=== PATIENT | male | born 1955 | race Caucasian/White ===

== ENCOUNTER 2018-03-02 11:34 | Inpatient (IN) | payer MEDICAID ==
[2018-03-02 11:37] VITALS: BMI 31.1
[2018-03-02] MEDS ORDERED: Sodium Chloride 0.9% 1,000 ML IV ONE (11:46)
--- NOTE | 2018-03-02 12:02 | C.PDOC ---
History Of Present Illness 62 y/o male with history of DM and HTN brought to ED by EMS as a red phone call for "code heart". As per EMS patient was driving and developed worsening sharp upper abdominal pain 07/26. Patient reports he rested in the car and woke up with worsening pain, called 911. When EMS arrived patient was hypotensive and diaphoretic with distended abdomen, was given baby aspirin. Patient denies chest pain, son or any other complaints at this time. Time Seen by Provider: 03/02/18 11:44 Chief Complaint (Nursing): Chest Pain History Per: Patient, EMS History/Exam Limitations: no limitations Onset/Duration Of Symptoms: Hrs Current Symptoms Are (Timing): Still Present Quality: Sharp Associated Symptoms: Diaphoresis Past Medical History Reviewed: Historical Data, Nursing Documentation, Vital Signs Vital Signs: Last Vital Signs Temp 98.5 F 03/02/18 12:02 Pulse 81 03/02/18 13:30 Resp 25 H 03/02/18 13:30 BP 96/51 L 03/02/18 13:30 Pulse Ox 92 L 03/02/18 14:52 - Medical History PMH: HTN Surgical History: No Surg Hx Family History: States: No Known Family Hx - Social History Hx Alcohol Use: No Hx Substance Use: No - Immunization History Hx Tetanus Toxoid Vaccination: Yes Hx Influenza Vaccination: Yes Hx Pneumococcal Vaccination: Yes Review Of Systems Constitutional: Negative for: Fever, Chills Cardiovascular: Negative for: Chest Pain Respiratory: Negative for: Shortness of Breath Gastrointestinal: Positive for: Abdominal Pain. Negative for: Nausea, Vomiting , Diarrhea Skin: Negative for: Rash Physical Exam - Physical Exam Appears: Non-toxic, No Acute Distress Skin: Dry, Diaphoretic, Pale Head: Atraumatic, Normacephalic Eye(s): bilateral: PERRL, EOMI, Conjunctiva Pale Oral Mucosa: Moist Neck: Normal ROM, Supple Chest: Symmetrical Cardiovascular: Rhythm Regular Respiratory: Normal Breath Sounds, No Rales, No Rhonchi, No Wheezing Gastrointestinal/Abdominal: Soft, Tenderness (Diffuse), Distention, No Guarding , No Rebound Extremity: Normal ROM, Capillary Refill (<2 seconds) Neurological/Psych: Oriented x3, Normal Speech, Normal Cognition ED Course And Treatment - Laboratory Results Result Diagrams: 03/02/18 12:04 05/17/18 12:04 ECG: Interpreted By Me, Viewed By Me ECG Rhythm: Sinus Rhythm Rate From EC (BPM) O2 Sat by Pulse Oximetry: 92 (RA) Medical Decision Making Medical Decision Making: Progress: 1st ECG showed no significant ST elevations 2nd ECG minimal to no changes Dr Crawley at bedside evaluated patient and downgraded code heart secondary to normal ECG Patient responded to fluids, BP improved. CT abdomen showed SBO spoke with Dr. Gibbons, surgical residents at the bedside. Recommend admission to medicine. Disposition Discussed With DrMireille: Andrew Dimas Counseled Patient/Family Regarding: Studies Performed, Diagnosis - Disposition Disposition: HOSPITALIZED Disposition Time: 14:57 Condition: GUARDED Forms: [facility] ([place]an) - POA Present On Arrival: None - Clinical Impression Clinical Impression: SBO (small bowel obstruction) - Scribe Statement The provider has reviewed the documentation as recorded by the Scribe Vinny Calles All medical record entries made by the Scribe were at my direction and personally dictated by me. I have reviewed the chart and agree that the record accurately reflects my personal performance of the history, physical exam, medical decision making, and the department course for this patient. I have also personally directed, reviewed, and agree with the discharge instructions and disposition. Decision To Admit - Pt Status Changed To: Hospital Disposition Of: Observation - . Bed Request Type: Regular Patient Diagnosis: SBO (small bowel obstruction)
[2018-03-02 12:09] LABS: BASO % 0.4 % (0.0-2.0); EOS # 0.1 K/uL (0.0-0.7); EOS % 0.9 % (0.0-4.0); HEMOGLOBIN 15.3 g/dL (12.0-18.0); LYMPH # 1.4 K/uL (1.0-4.3); MEAN CELL VOLUME 86.6 fL (80.0-94.0); MEAN CORPUSCULAR HEMOGLOBIN 30.7 pg (27.0-31.0); MEAN CORPUSCULAR HGB CONC 35.4 g/dL (33.0-37.0); MEAN PLATELET VOLUME 9.1 fL (7.2-11.7); MONO # 0.5 K/uL (0.0-0.8); MONO % 6.9 % (0.0-10.0); NEUT # 5.8 K/uL (1.8-7.0); NEUT % 73.8 % (50.0-75.0); RBC 4.99 Mil/uL (4.40-5.90); RED CELL DISTRIBUTION WIDTH 13.6 % (11.5-14.5); WHITE BLOOD COUNT 7.8 K/uL (4.8-10.8)
[2018-03-02 12:31] LABS: B-TYPE NATRIURETIC PEPTIDE 84.7 pg/mL (0-900)
[2018-03-02 12:42] LABS: VENOUS BLOOD GAS BASE EXCESS -2.3 mmol/L (0.0-2.0); VENOUS BLOOD GAS PCO2 52 mmHg (40-60); VENOUS BLOOD GAS PO2 28 mm/Hg (30-55); VENOUS BLOOD PH 7.29 (7.32-7.43)
[2018-03-02 12:57] LABS: ALB/GLOB RATIO 1.2 (1.0-2.1); ALBUMIN 4.3 g/dL (3.5-5.0)
[2018-03-02] MEDS ORDERED: Dextrose 50% SYRINGE Inj (50 ml) IV STA ×2 (13:14→19:01)
[2018-03-02] MEDS ORDERED: (Novolin R) Insulin Human Regular 100 units/ml vial IV ONE (13:14)
--- NOTE | 2018-03-02 13:18 | RAD ---
Chest x-ray single frontal view History: Chest pain. Comparison: None available. Findings: No focal infiltrate or effusion. Heart size within normal limits. Impression: No focal infiltrate or effusion.
[2018-03-02 13:19] LABS: TROPONIN I 0.017 ng/mL (0.00-0.120)
--- NOTE | 2018-03-02 13:26 | CT ---
PROCEDURE: CT Abdomen and Pelvis without intravenous contrast HISTORY: abdominal pain/distention COMPARISON: Abdomen KUB 03/02/2018 12:23 p.m.. TECHNIQUE: Helical CT of the abdomen and pelvis was performed without oral or intravenous contrast as per referring physician request. Contrast dose: None Radiation dose: Total exam DLP = 1201.60 mGy-cm. This CT exam was performed using one or more of the following dose reduction techniques: Automated exposure control, adjustment of the mA and/or kV according to patient size, and/or use of iterative reconstruction technique. FINDINGS: LOWER THORAX: Normal sized heart with extensive coronary artery calcifications noted. No pleural or pericardial effusion. Small hiatal hernia encountered. LIVER: Unremarkable. No gross lesion or ductal dilatation. GALLBLADDER AND BILE DUCTS: Trach cholelithiasis identified with only a mildly distended gallbladder. PANCREAS: Unremarkable. No gross lesion or ductal dilatation. SPLEEN: Unremarkable. ADRENALS: Unremarkable. No mass. KIDNEYS AND URETERS: A 3.8 cm cyst in the mid to lower pole left kidney with a tiny lucency seen the upper pole right kidney too small to characterize, under 1 cm size. There is a 1.6 cm cyst identified at the lower pole left kidney as well. No hydronephrosis. No solid mass. VASCULATURE: A mildly atherosclerotic nonaneurysmal abdominal aorta is identified. BOWEL: There is moderate distention of the stomach with fluid. Small bowel is dilated diffusely with large-bowel essentially collapsed throughout. There is a fecalized segment of the ileum which appears to be the transition point for the small bowel obstruction. Consider potential bezoar in this location though a distal small bowel stricture is a possibility. Further clinical correlation is recommended. APPENDIX: Unremarkable. Normal appendix. PERITONEUM: Limited ascites identified in the inferior abdomen. There is no free intraperitoneal gas however. LYMPH NODES: Unremarkable. No enlarged lymph nodes. BLADDER: Unremarkable. REPRODUCTIVE: Unremarkable. BONES: No acute fracture. OTHER FINDINGS: None. IMPRESSION: High-grade distal small-bowel obstruction occurring at the terminal ileum with fecalized contents of the distal small bowel appreciated at the mid to distal ileum. Consider distal terminal ileal stricture or possible bezoar causing obstruction of distal small bowel. Limited inferior abdominal ascites. No free intraperitoneal gas. The colon appears collapsed. Lack of contrast agents limits interpretation. Other lesser findings as discussed above.
[2018-03-02] MEDS ORDERED: Dextrose 50% SYRINGE Inj (50 ml) ONE (13:28)
[2018-03-02] MEDS ORDERED: (Novolin R) Insulin Human Regular 100 units/ml vial ONE (13:28)
[2018-03-02] MEDS ORDERED: Calcium Gluconate 4.65 mEq/10 ml Inj ONE (13:30)
--- NOTE | 2018-03-02 13:45 | RAD ---
Abdomen two views History: Abdominal distention. Comparison: None available. Findings: Multiple dilated loops of small bowel seen throughout the visualized abdomen. Fecal retention in the right hemicolon. Impression: Multiple dilated loops of small bowel seen throughout the abdomen and pelvis concerning for partial bowel obstruction versus ileus. Please note a portion of right upper abdomen was not imaged.
[2018-03-02] MEDS ORDERED: Sodium Chloride 0.9% 1,000 ML ONE (14:45)
[2018-03-02] MEDS: Sodium Chloride 0.9% 1,000 ML IV SCH ×3 (14:56→22:13)
--- NOTE | 2018-03-02 15:14 | CP.PCM.HP ---
<Rowena Melo - Last Filed: 03/02/18 17:09> History of Present Illness - History of Present Illness History of Present Illness: Medicine Note for Hospitalist Service- Dr. Dimas CC: abdominal pain HPI: 62 year old male with PMHx of HTN (norvasc) and Uncontrolled T2DM (HbgA1C 9.1; on 70/30 and lantus) presents to the ED with severe abdominal pain that started this morning. Patient reported intense abdominal pain that started this morning. Last BM was loose at 0600, has not had flatus for 12+ hours. He was driving when he started having the pain. He parked and called 911 since the pain did not go away. Initially he was called as a code heart, serial EKGs and troponin were normal. Patient found to have SBO confirmed with CT abdomen and pelvis. Initially patient refused NGT but after vomiting bilious content, he agreed to the procedure. NGT placed with 650 cc of output. States similar pain 6 years ago where he was admitted for SBO, NGT placed and symptoms resolved w/o surgical intervention. Denies colonoscopy, denied any abdominal surgeries. Denied fever, chills, headache, chest pain, abdominal pain, n/v/d/c, or urinary symptoms. PMHx: HTN, Uncontrolled T2DM PSHx: Denied Meds: As noted in HPI All: Denied SHx: Admitted to smoking 1/2 ppd > 30+ years. Denied alcohol, or illicit drug use FHx: Unremarkable PMD: Dr. Savage Patel Present on Admission - Present on Admission Any Indicators Present on Admission: No Past Patient History - Past Social History Smoking Status: Light Smoker < 10 Cigarettes Daily - CARDIAC Hx Hypertension: Yes - ENDOCRINE/METABOLIC Hx Endocrine Disorders: Yes Hx Diabetes Mellitus Type 2: Yes - PSYCHIATRIC Hx Substance Use: No - SURGICAL HISTORY Hx Surgeries: Yes Other/Comment: upper back surgery Meds Allergies/Adverse Reactions: Allergies Allergy/AdvReac Type Severity Reaction Status Date / Time No Known Allergies Allergy Verified 03/02/18 11:37 Physical Exam - Constitutional Appears: No Acute Distress - Head Exam Head Exam: NORMAL INSPECTION, NORMOCEPHALIC - Eye Exam Eye Exam: EOMI, Normal appearance, PERRL Pupil Exam: NORMAL ACCOMODATION - ENT Exam ENT Exam: Mucous Membranes Moist - Respiratory Exam Respiratory Exam: Clear to Auscultation Bilateral, NORMAL BREATHING PATTERN - Cardiovascular Exam Cardiovascular Exam: REGULAR RHYTHM - GI/Abdominal Exam GI & Abdominal Exam: Distended, Firm, Normal Bowel Sounds, Soft, Tenderness. absent: Guarding, Hernia, Pulsatile Mass - Rectal Exam Rectal Exam: Deferred - Extremities Exam Extremities exam: Positive for: normal inspection, pedal pulses present. Negative for: pedal edema, tenderness - Neurological Exam Neurological exam: Alert, CN II-XII Intact, Oriented x3 - Psychiatric Exam Psychiatric exam: Normal Affect, Normal Mood - Skin Skin Exam: Dry, Intact, Normal Color, Warm Results - Vital Signs Recent Vital Signs: Last Vital Signs Temp 98.5 F 03/02/18 12:02 Pulse 81 03/02/18 13:30 Resp 25 H 03/02/18 13:30 BP 96/51 L 03/02/18 13:30 Pulse Ox 92 L 03/02/18 14:57 - Labs Result Diagrams: 03/02/18 12:04 03/02/18 12:04 Labs: Laboratory Results - last 24 hr 03/02/18 03/02/18 03/02/18 12:04 12:04 12:04 WBC 7.8 RBC 4.99 Hgb 15.3 Hct 43.2 MCV 86.6 MCH 30.7 MCHC 35.4 RDW 13.6 Plt Count 215 MPV 9.1 Neut % (Auto) 73.8 Lymph % (Auto) 18.0 L [place] % (Auto) 6.9 Eos % (Auto) 0.9 Baso % (Auto) 0.4 Neut # (Auto) 5.8 Lymph # (Auto) 1.4 [place] # (Auto) 0.5 Eos # (Auto) 0.1 Baso # (Auto) 0.0 pO2 VBG pH VBG pCO2 VBG HCO3 VBG Total CO2 VBG O2 Sat (Calc) VBG Base Excess VBG Potassium Glucose Lactate Sodium 132 Potassium 6.7 H* Chloride 92 L Carbon Dioxide 25 Anion Gap 22 H BUN 33 H Creatinine 2.1 H Est GFR ( Amer) 39 Est GFR (Non-Af Amer) 32 Random Glucose 268 H Calcium 10.0 Total Bilirubin 1.4 H AST 33 ALT 35 Alkaline Phosphatase 65 Troponin I 0.0170 NT-Pro-B Natriuret Pep 84.7 Total Protein 8.0 Albumin 4.3 Globulin 3.7 Albumin/Globulin Ratio 1.2 Triglycerides 120 Cholesterol 117 LDL Cholesterol Direct 70 HDL Cholesterol 29 L Venous Blood Potassium Blood Type O POSITIVE Antibody Screen Negative 03/02/18 12:35 WBC RBC Hgb Hct MCV MCH MCHC RDW Plt Count MPV Neut % (Auto) Lymph % (Auto) [place] % (Auto) Eos % (Auto) Baso % (Auto) Neut # (Auto) Lymph # (Auto) [place] # (Auto) Eos # (Auto) Baso # (Auto) pO2 28 L VBG pH 7.29 L VBG pCO2 52 VBG HCO3 21.7 VBG Total CO2 26.6 VBG O2 Sat (Calc) 51.2 VBG Base Excess -2.3 L VBG Potassium 5.7 H Glucose 253 H Lactate 2.3 H Sodium 129.0 L Potassium Chloride 97.0 L Carbon Dioxide Anion Gap BUN Creatinine Est GFR ( Amer) Est GFR (Non-Af Amer) Random Glucose Calcium Total Bilirubin AST ALT Alkaline Phosphatase Troponin I NT-Pro-B Natriuret Pep Total Protein Albumin Globulin Albumin/Globulin Ratio Triglycerides Cholesterol LDL Cholesterol Direct HDL Cholesterol Venous Blood Potassium 5.7 H Blood Type Antibody Screen Assessment & Plan - Assessment and Plan (Free Text) Assessment: 62 year old male with PMHx of HTN (norvasc) and Uncontrolled T2DM (HbgA1C 9.1; on 70/30 and lantus) presents to the ED with severe abdominal pain that started this morning found to have SBO. NGT placed with immediate relief and decompression with 650cc output bilious content. Previous SBO was 6 years ago relieved with NGT, no prior surgical intervention. Denied prior abdominal surgery or colonoscopy. Plan: SBO - Surgery consulted - Dr. Gibbons - help appreciated - Gastroenterology consulted - Dr. Garcia - help appreciated - History of SBO 6 years ago, NGT placed, no surgical intervention, no prior colonoscopy - Lactate 2.3 s/p 1 L, on NS @ 250cc/hr - will trend lactate Imaging: - Abdomen Xray: SBO - CT Abdomen & Pelvis: SBO vs illeus Meds: - NS @250 cc/hr - Zofran, Reglan PRN - NGT in place with 650 cc bilious output, on continuous suction Hyperkalemia - 6.7 on admission, s/p calcium gluconate, D50, Insulin - EKG: sinus tachycardia, no ST changes - F/U CBC, CMP, ABG, and EKG Hx T2DM, Uncontrolled - Accuchecks - HbgA1C- 9.1 - ISS- medium - Currently NPO Acute TERRIE - NS @250 cc/hr - Continue to monitor Hx HTN - Currently hypotensive, will hold on home dose of Norvasc 5 mg Prophylaxis - GI: protonix IV - DVT: SCDs, heparin Q12 DW Dr. Andrew Dimas, Rowena Melo DO, PGY-1 <Andrew Dimas - Last Filed: 03/02/18 19:00> Results - Vital Signs Recent Vital Signs: Last Vital Signs Temp 98.5 F 03/02/18 12:02 Pulse 94 H 03/02/18 17:17 Resp 18 03/02/18 17:17 BP 96/59 L 03/02/18 17:17 Pulse Ox 97 03/02/18 17:17 - Labs Result Diagrams: 03/02/18 18:17 03/02/18 18:17 Labs: Laboratory Results - last 24 hr 03/02/18 03/02/18 03/02/18 12:04 12:04 12:04 WBC 7.8 RBC 4.99 Hgb 15.3 Hct 43.2 MCV 86.6 MCH 30.7 MCHC 35.4 RDW 13.6 Plt Count 215 MPV 9.1 Neut % (Auto) 73.8 Lymph % (Auto) 18.0 L [place] % (Auto) 6.9 Eos % (Auto) 0.9 Baso % (Auto) 0.4 Neut # (Auto) 5.8 Lymph # (Auto) 1.4 Cass # (Auto) 0.5 Eos # (Auto) 0.1 Baso # (Auto) 0.0 pO2 VBG pH VBG pCO2 VBG HCO3 VBG Total CO2 VBG O2 Sat (Calc) VBG Base Excess VBG Potassium Glucose Lactate Sodium 132 Potassium 6.7 H* Chloride 92 L Carbon Dioxide 25 Anion Gap 22 H BUN 33 H Creatinine 2.1 H Est GFR ( Amer) 39 Est GFR (Non-Af Amer) 32 POC Glucose (mg/dL) Random Glucose 268 H Hemoglobin A1c Calcium 10.0 Total Bilirubin 1.4 H AST 33 ALT 35 Alkaline Phosphatase 65 Troponin I 0.0170 NT-Pro-B Natriuret Pep 84.7 Total Protein 8.0 Albumin 4.3 Globulin 3.7 Albumin/Globulin Ratio 1.2 Triglycerides 120 Cholesterol 117 LDL Cholesterol Direct 70 HDL Cholesterol 29 L Lipase 49 Venous Blood Potassium Influenza Typ A,B (EIA) Blood Type O POSITIVE Antibody Screen Negative 03/02/18 03/02/18 03/02/18 12:35 15:42 17:12 WBC RBC Hgb Hct MCV MCH MCHC RDW Plt Count MPV Neut % (Auto) Lymph % (Auto) [place] % (Auto) Eos % (Auto) Baso % (Auto) Neut # (Auto) Lymph # (Auto) Cass # (Auto) Eos # (Auto) Baso # (Auto) pO2 28 L VBG pH 7.29 L VBG pCO2 52 VBG HCO3 21.7 VBG Total CO2 26.6 VBG O2 Sat (Calc) 51.2 VBG Base Excess -2.3 L VBG Potassium 5.7 H Glucose 253 H Lactate 2.3 H Sodium 129.0 L Potassium Chloride 97.0 L Carbon Dioxide Anion Gap BUN Creatinine Est GFR ( Amer) Est GFR (Non-Af Amer) POC Glucose (mg/dL) 234 H Random Glucose Hemoglobin A1c 9.1 H Calcium Total Bilirubin AST ALT Alkaline Phosphatase Troponin I NT-Pro-B Natriuret Pep Total Protein Albumin Globulin Albumin/Globulin Ratio Triglycerides Cholesterol LDL Cholesterol Direct HDL Cholesterol Lipase Venous Blood Potassium 5.7 H Influenza Typ A,B (EIA) Blood Type Antibody Screen 03/02/18 03/02/18 03/02/18 18:17 18:17 Unknown WBC 8.1 RBC 4.96 Hgb 14.8 Hct 42.9 MCV 86.5 MCH 29.7 MCHC 34.4 RDW 13.8 Plt Count 208 MPV 8.6 Neut % (Auto) 75.5 H Lymph % (Auto) 16.6 L [place] % (Auto) 6.4 Eos % (Auto) 0.6 Baso % (Auto) 0.9 Neut # (Auto) 6.1 Lymph # (Auto) 1.3 Cass # (Auto) 0.5 Eos # (Auto) 0.1 Baso # (Auto) 0.1 pO2 VBG pH VBG pCO2 VBG HCO3 VBG Total CO2 VBG O2 Sat (Calc) VBG Base Excess VBG Potassium Glucose Lactate Sodium 134 Potassium 6.9 H* Chloride 96 L Carbon Dioxide 25 Anion Gap 20 BUN 37 H Creatinine 2.1 H Est GFR ( Amer) 39 Est GFR (Non-Af Amer) 32 POC Glucose (mg/dL) Random Glucose 242 H Hemoglobin A1c Calcium 9.6 Total Bilirubin 1.3 AST 27 ALT 38 Alkaline Phosphatase 57 Troponin I NT-Pro-B Natriuret Pep Total Protein 7.3 Albumin 4.0 Globulin 3.3 Albumin/Globulin Ratio 1.2 Triglycerides Cholesterol LDL Cholesterol Direct HDL Cholesterol Lipase Venous Blood Potassium Influenza Typ A,B (EIA) Negative for flu a/b Blood Type Antibody Screen Attending/Attestation - Attestation I have personally seen and examined this patient.: Yes I have fully participated in the care of the patient.: Yes I have reviewed all pertinent clinical information: Yes Notes (Text): 03/02/18 19:00 Medical attending: Patient was seen and examined by me. Agree with the above note by the medical delivery driver. As reported above previously, the patient was driving when he became very weak, appeared to have abdominal pain, and had to tap puller the side of the road - when he was found by EMS they were very concerned that he was having an AR EKGs were done and these did not show an ST elevated AR or depressions. His first troponin is negative as well. When he was found to have was a small bowel obstruction. Initially he was very reluctant to have NG tube placed in however eventually he did allow the NG tube to be placed in. For alma delia will have to recheck his lab work just make sure his lactic acid level does not increase, and ABG as well. Also he did have a high potassium level. The emergency room gave IV insulin as well as calcium gluconate. I did not see any EKG changes when I looked at EKGs. Nevertheless will we again checked the lab work alma delia Thank you very much, Andrew Dimas
[2018-03-02] MEDS ORDERED: Sodium Chloride 0.9% 1,000 ML IV SCH (15:15)
[2018-03-02] MEDS ORDERED: HYDROmorphone 0.5 mg/0.5 ml ISec IVP PRN ×2 (15:16→15:21)
--- NOTE | 2018-03-02 15:18 | CP.PCM.CON ---
History of Present Illness - History of Present Illness History of Present Illness: General Surgery- Dr. Gibbons Reason for Consult: SBO 62M pmhx significant for SBO, HTN, Diabetes presents to [facility] ER w/ Crampy generalized abdominal pain that started at 6am today with associated diaphroesis and subjective fever. Last BM was loose at 0600, has not had flatus for 12+ hours. States similar pain 6 years ago where he was admitted for SBO NGT placed and symptoms resolved w/o surgical intervention. Patient has a history of needing to take stool softener as a kid. Denies colonoscopy or bright red blood per rectum. No previous abdominal surgeries. Denies recent sick contacts or foreign travel. Currently denies: Vomiting, chest pain, shortness of breath, changes in urinary habits, numbness/tingling in extremities PMH: stated above PSH: Denies ALL: NKDA SocialHx: smokes 1/2 ppd > 30+ years. Drives a limosuine. Denies ETOH, recreational drug use FamHx: non-contributory Review of Systems - Review of Systems All systems: reviewed and no additional remarkable complaints except - Constitutional Constitutional: As Per HPI Past Patient History - Past Social History Smoking Status: Light Smoker < 10 Cigarettes Daily - CARDIAC Hx Hypertension: Yes - ENDOCRINE/METABOLIC Hx Endocrine Disorders: Yes Hx Diabetes Mellitus Type 2: Yes - PSYCHIATRIC Hx Substance Use: No - SURGICAL HISTORY Hx Surgeries: Yes Other/Comment: upper back surgery Meds Allergies/Adverse Reactions: Allergies Allergy/AdvReac Type Severity Reaction Status Date / Time No Known Allergies Allergy Verified 03/02/18 11:37 - Medications Medications: Current Medications Hydromorphone HCl (Dilaudid) 0.5 mg IVP Q4H PRN PRN Reason: Pain, moderate (4-7) Sodium Chloride (Sodium Chloride 0.9%) 1,000 mls @ 250 mls/hr IV .Q4H TRISTA Last Admin: 03/02/18 14:56 Dose: 250 mls/hr Sodium Chloride (Sodium Chloride 0.9%) 1,000 mls @ 175 mls/hr IV .Q5H43M TRISTA Ondansetron HCl (Zofran Inj) 4 mg IVP Q4 PRN PRN Reason: Nausea/Vomiting Physical Exam - Constitutional Appears: Non-toxic, No Acute Distress - Eye Exam Eye Exam: EOMI. absent: Scleral icterus - ENT Exam ENT Exam: Mucous Membranes Moist - Respiratory Exam Respiratory Exam: NORMAL BREATHING PATTERN. absent: Accessory Muscle Use, Respiratory Distress - Cardiovascular Exam Cardiovascular Exam: +S1, +S2. absent: Bradycardia, Tachycardia - GI/Abdominal Exam GI & Abdominal Exam: Distended, Guarding (voluntary guarding), Soft, Tenderness (tender to palpation localized aliyah-umblical). absent: Firm, Rebound, Rigid - Extremities Exam Extremities exam: Positive for: normal inspection. Negative for: calf tenderness - Neurological Exam Neurological exam: Alert, Oriented x3 - Psychiatric Exam Psychiatric exam: Normal Affect - Skin Skin Exam: Intact, Warm Results - Vital Signs Recent Vital Signs: Last Vital Signs Temp 98.5 F 03/02/18 12:02 Pulse 81 03/02/18 13:30 Resp 25 H 03/02/18 13:30 BP 96/51 L 03/02/18 13:30 Pulse Ox 92 L 03/02/18 14:57 - Labs Result Diagrams: 03/02/18 12:04 03/02/18 12:04 Labs: Laboratory Results - last 24 hr 03/02/18 03/02/18 03/02/18 12:04 12:04 12:04 WBC 7.8 RBC 4.99 Hgb 15.3 Hct 43.2 MCV 86.6 MCH 30.7 MCHC 35.4 RDW 13.6 Plt Count 215 MPV 9.1 Neut % (Auto) 73.8 Lymph % (Auto) 18.0 L [place] % (Auto) 6.9 Eos % (Auto) 0.9 Baso % (Auto) 0.4 Neut # (Auto) 5.8 Lymph # (Auto) 1.4 [place] # (Auto) 0.5 Eos # (Auto) 0.1 Baso # (Auto) 0.0 pO2 VBG pH VBG pCO2 VBG HCO3 VBG Total CO2 VBG O2 Sat (Calc) VBG Base Excess VBG Potassium Glucose Lactate Sodium 132 Potassium 6.7 H* Chloride 92 L Carbon Dioxide 25 Anion Gap 22 H BUN 33 H Creatinine 2.1 H Est GFR ( Amer) 39 Est GFR (Non-Af Amer) 32 Random Glucose 268 H Calcium 10.0 Total Bilirubin 1.4 H AST 33 ALT 35 Alkaline Phosphatase 65 Troponin I 0.0170 NT-Pro-B Natriuret Pep 84.7 Total Protein 8.0 Albumin 4.3 Globulin 3.7 Albumin/Globulin Ratio 1.2 Triglycerides 120 Cholesterol 117 LDL Cholesterol Direct 70 HDL Cholesterol 29 L Venous Blood Potassium Blood Type O POSITIVE Antibody Screen Negative 03/02/18 12:35 WBC RBC Hgb Hct MCV MCH MCHC RDW Plt Count MPV Neut % (Auto) Lymph % (Auto) [place] % (Auto) Eos % (Auto) Baso % (Auto) Neut # (Auto) Lymph # (Auto) [place] # (Auto) Eos # (Auto) Baso # (Auto) pO2 28 L VBG pH 7.29 L VBG pCO2 52 VBG HCO3 21.7 VBG Total CO2 26.6 VBG O2 Sat (Calc) 51.2 VBG Base Excess -2.3 L VBG Potassium 5.7 H Glucose 253 H Lactate 2.3 H Sodium 129.0 L Potassium Chloride 97.0 L Carbon Dioxide Anion Gap BUN Creatinine Est GFR ( Amer) Est GFR (Non-Af Amer) Random Glucose Calcium Total Bilirubin AST ALT Alkaline Phosphatase Troponin I NT-Pro-B Natriuret Pep Total Protein Albumin Globulin Albumin/Globulin Ratio Triglycerides Cholesterol LDL Cholesterol Direct HDL Cholesterol Venous Blood Potassium 5.7 H Blood Type Antibody Screen Assessment & Plan - Assessment and Plan (Free Text) Assessment: 62M w/ abdominal pain, SBO Plan: - NGT - NPO - IVF- on NS - serial abd exams - pain control and anti-emetic PRN - AM Labs - monitor bowel function - I/O - d/w Dr. Gibbons surgical attending [facility] PGY1
[2018-03-02] MEDS ORDERED: (Novolin R) Insulin Human Regular 100 units/ml vial SC SCH ×2 (16:30→18:03)
--- NOTE | 2018-03-02 17:06 | RAD ---
HISTORY: NGT placement COMPARISON: 03/02/2018. Time of the most recent examination: 12:14. FINDINGS: LUNGS: No active pulmonary disease. PLEURA: No significant pleural effusion identified, no pneumothorax apparent. CARDIOVASCULAR: Normal. OSSEOUS STRUCTURES: No significant abnormalities. VISUALIZED UPPER ABDOMEN: Normal. OTHER FINDINGS: Nasogastric tube courses through the esophagus into the stomach in good position. IMPRESSION: No active pulmonary disease. Satisfactory position of recently placed nasogastric tube.
[2018-03-02] MEDS ORDERED: Morphine 4 MG/ML VIAL ONE (17:10)
[2018-03-02 18:20] LABS: BASO % 0.9 % (0.0-2.0); EOS % 0.6 % (0.0-4.0); HEMOGLOBIN 14.8 g/dL (12.0-18.0); LYMPH # 1.3 K/uL (1.0-4.3); LYMPH % 16.6 % (20.0-40.0); MEAN CELL VOLUME 86.5 fL (80.0-94.0); MEAN CORPUSCULAR HEMOGLOBIN 29.7 pg (27.0-31.0); MEAN CORPUSCULAR HGB CONC 34.4 g/dL (33.0-37.0); MEAN PLATELET VOLUME 8.6 fL (7.2-11.7); MONO # 0.5 K/uL (0.0-0.8); MONO % 6.4 % (0.0-10.0); NEUT # 6.1 K/uL (1.8-7.0); NEUT % 75.5 % (50.0-75.0); RBC 4.96 Mil/uL (4.40-5.90); RED CELL DISTRIBUTION WIDTH 13.8 % (11.5-14.5); WHITE BLOOD COUNT 8.1 K/uL (4.8-10.8)
[2018-03-02 18:21] LABS: BASO # 0.1 K/uL (0.0-0.2); EOS # 0.1 K/uL (0.0-0.7)
[2018-03-02 18:47] LABS: ALB/GLOB RATIO 1.2 (1.0-2.1); CALCIUM 9.6 mg/dl (8.6-10.4)
[2018-03-02] MEDS ORDERED: (Novolin R) Insulin Human Regular 100 units/ml vial SC ONE (19:01)
[2018-03-02] MEDS ORDERED: Sodium Bicarbonate (8.4%) 50 Meq Syringe IVP ONE (19:02)
[2018-03-02] MEDS ORDERED: Calcium Gluconate 4.65 mEq/10 ml Inj IVP ONE (19:03)
[2018-03-02] MEDS ORDERED: Albuterol 0.083% Inhal Sol (2.5 mg/3 mL) UD INH STA (19:37)
[2018-03-02 19:58] LABS: ABG ALLEN TEST PO; ARTERIAL BLOOD GAS HCO3 26.2 mmol/L (21-28); ARTERIAL BLOOD GAS HEMOGLOBIN 14.5 g/dL (11.7-17.4); ARTERIAL BLOOD GAS O2 SAT 92.3 % (95-98); ARTERIAL BLOOD GAS PCO2 44 mm/Hg (35-45); ARTERIAL BLOOD GAS PO2 54 mm/Hg (80-100); ARTERIAL BLOOD GAS TCO2 28.7 mmol/L (22-28)
[2018-03-02] MEDS: (Novolin R) Insulin Human Regular 100 units/ml vial SC SCH (21:46)
[2018-03-02 22:13] LABS: CALCIUM 9.7 mg/dl (8.6-10.4)
[2018-03-03] MEDS: Sodium Chloride 0.9% 1,000 ML IV SCH ×5 (00:23→18:58)
[2018-03-03 02:26] VITALS: RESP 20
[2018-03-03] MEDS: (Novolin R) Insulin Human Regular 100 units/ml vial SC SCH ×4 (07:35→22:28)
--- NOTE | 2018-03-03 07:37 | CP.PCM.PN ---
Subjective - Date & Time of Evaluation Date of Evaluation: 03/03/18 Time of Evaluation: 06:30 - Subjective Subjective: General Surgery- Dr. Gibbons Patient seen and examined at bedside this AM. no acute events overnight. 200cc of bilious fluid. Abdominal pain better than yesterday. Less distended. No flatus or BM overnight. Denies Fevers, chills, chest pain, shortness of breath, vomiting, diarrhea Objective - Vital Signs/Intake and Output Vital Signs (last 24 hours): Temp Pulse Resp BP Pulse Ox 99.1 F 108 H 20 116/66 95 03/02/18 23:45 03/03/18 05:06 03/02/18 23:45 03/02/18 23:45 03/02/18 23:45 Intake and Output: 03/03/18 03/03/18 06:59 18:59 Intake Total 2375 Output Total 1000 Balance 1375 - Medications Medications: Current Medications Acetaminophen (Tylenol 325mg Tab) 650 mg PO Q6 PRN PRN Reason: Fever >100.4 F Heparin Sodium (Porcine) (Heparin) 5,000 units SC Q12 [facility] Last Admin: 03/02/18 21:35 Dose: 5,000 units Sodium Chloride (Sodium Chloride 0.9%) 1,000 mls @ 250 mls/hr IV .Q4H [facility] Last Admin: 03/03/18 05:02 Dose: 250 mls/hr Insulin Human Regular (Novolin R) 0 unit SC ACHS [facility] PRN Reason: Protocol Last Admin: 03/02/18 21:46 Dose: Not Given Metoclopramide HCl (Reglan) 10 mg IVP Q6 [facility] Stop: 03/04/18 12:01 Last Admin: 03/03/18 06:10 Dose: 10 mg Morphine Sulfate (Morphine) 1 mg IVP Q4 PRN PRN Reason: Pain, severe (8-10) Last Admin: 03/02/18 17:14 Dose: 1 mg Ondansetron HCl (Zofran Inj) 4 mg IVP Q4 PRN PRN Reason: Nausea/Vomiting Last Admin: 03/02/18 17:14 Dose: 4 mg Pantoprazole Sodium (Protonix Inj) 40 mg IVP DAILY [facility] - Labs Labs: 03/02/18 18:17 03/02/18 21:52 - Constitutional Appears: Non-toxic, No Acute Distress - Head Exam Head Exam: absent: ATRAUMATIC - Eye Exam Eye Exam: EOMI, Scleral icterus - ENT Exam ENT Exam: Mucous Membranes Moist - Respiratory Exam Respiratory Exam: NORMAL BREATHING PATTERN. absent: Accessory Muscle Use, Respiratory Distress - Cardiovascular Exam Cardiovascular Exam: +S1, +S2. absent: Bradycardia, Tachycardia - GI/Abdominal Exam GI & Abdominal Exam: Distended (less distended than yesterday), Soft, Tenderness (tender in lower abdomen to deep palpation). absent: Firm, Guarding , Rigid - Neurological Exam Neurological Exam: Alert, Awake, Oriented x3 - Skin Skin Exam: Intact, Warm Assessment and Plan - Assessment and Plan (Free Text) Assessment: 62M w/ SBO Plan: - NPO - IVF - NGT to suction- gentle flushes q4h - monitor bowel function - monitor I/O - pt abd improving - d/w Dr. Gibbons Surgical attending PGY1
--- NOTE | 2018-03-03 07:51 | CP.PCM.CON ---
<Rebecca Navarro - Last Filed: 03/03/18 11:01> History of Present Illness - History of Present Illness History of Present Illness: Gastroenterology Fellow/PGY5 Consult Note 62 year old male with PMH of SBO six years ago ([facility]) , uncontrolled T2DM, HTN, and Obesity presenting with abdominal pain. Patient notes normal activities of daily living leading up to sudden onset of diffuse sharp, pressure-like, progressive abdominal pain without radiation to chest or back at 6AM yesterday, pain scale 10/10. He notes having a formed stool at 4AM prior to abdominal pain onset. The pain became unbearable between 10-11AM leading to ER presentation. Associated diaphoresis, nausea, and one bilious vomitus episode in ER. Subsequent 650cc NGT output and overnight additional 300cc NGT output. This morning, continues to have diffuse abdominal pain, pain scale 6-7/10. Denies flatus or bowel movement since 6AM yesterday morning. He notes eating soup in the day on Tuesday and having junk food of pizza, fried chicken, and rice for dinner. He notes similar presentation to diagnosis of SBO six years ago which resolved conservatively with NGT decompression. Denies hematemesis, heartburn, bloating, diarrhea, constipation, melena, hematochezia, unintentional weight loss, skin lesions, oral aphthous ulcers, eye pain/redness , kidney stones, back/hip pain, leg swelling, yellowing of skin/eyes, or confusion. No prior EGD or colonoscopy. Family History- denies SBO, stomach cancer, colon cancer Social History- 1/2ppd>30years, denies alcohol or illicit drug use Surgical History- denies Review of Systems - Review of Systems Review of Systems: 12-point review of system negative except for as above Past Patient History - Past Social History Smoking Status: Light Smoker < 10 Cigarettes Daily - CARDIAC Hx Hypertension: Yes - ENDOCRINE/METABOLIC Hx Endocrine Disorders: Yes Hx Diabetes Mellitus Type 2: Yes - PSYCHIATRIC Hx Substance Use: No - SURGICAL HISTORY Hx Surgeries: Yes Other/Comment: upper back surgery Meds Allergies/Adverse Reactions: Allergies Allergy/AdvReac Type Severity Reaction Status Date / Time No Known Allergies Allergy Verified 03/02/18 11:37 - Medications Medications: Current Medications Acetaminophen (Tylenol 325mg Tab) 650 mg PO Q6 PRN PRN Reason: Fever >100.4 F Heparin Sodium (Porcine) (Heparin) 5,000 units SC Q12 [facility] Last Admin: 03/02/18 21:35 Dose: 5,000 units Sodium Chloride (Sodium Chloride 0.9%) 1,000 mls @ 250 mls/hr IV .Q4H [facility] Last Admin: 03/03/18 05:02 Dose: 250 mls/hr Insulin Human Regular (Novolin R) 0 unit SC ACHS [facility] PRN Reason: Protocol Last Admin: 03/02/18 21:46 Dose: Not Given Metoclopramide HCl (Reglan) 10 mg IVP Q6 [facility] Stop: 03/04/18 12:01 Last Admin: 03/03/18 06:10 Dose: 10 mg Morphine Sulfate (Morphine) 1 mg IVP Q4 PRN PRN Reason: Pain, severe (8-10) Last Admin: 03/02/18 17:14 Dose: 1 mg Ondansetron HCl (Zofran Inj) 4 mg IVP Q4 PRN PRN Reason: Nausea/Vomiting Last Admin: 03/02/18 17:14 Dose: 4 mg Pantoprazole Sodium (Protonix Inj) 40 mg IVP DAILY [facility] Physical Exam - Constitutional Appears: Non-toxic, No Acute Distress - Head Exam Head Exam: ATRAUMATIC, NORMOCEPHALIC - Eye Exam Eye Exam: EOMI, PERRL. absent: Scleral icterus Pupil Exam: PERRL. absent: Miosis, Mydriatic - ENT Exam ENT Exam: Mucous Membranes Moist, Normal Oropharynx Additional comments: right nare NGT in place, 300cc of dark bilious output in canister - Neck Exam Neck exam: Positive for: Normal Inspection - Respiratory Exam Respiratory Exam: Clear to Auscultation Bilateral. absent: Rales, Rhonchi, Wheezes - Cardiovascular Exam Cardiovascular Exam: RRR, +S1, +S2. absent: Gallop, Rubs - GI/Abdominal Exam GI & Abdominal Exam: Diminished Bowel Sounds, Distended, Hypoactive Bowel Sounds , Soft, Tenderness. absent: Firm, Guarding, Organomegaly, Rebound, Rigid Additional comments: diffuse tenderness to palpation, hypoactive bowel sounds - Extremities Exam Extremities exam: Positive for: normal inspection. Negative for: pedal edema - Neurological Exam Neurological exam: Alert, Oriented x3 - Psychiatric Exam Psychiatric exam: Normal Affect, Normal Mood - Skin Skin Exam: Dry, Intact, Normal Color, Warm Results - Vital Signs Recent Vital Signs: Last Vital Signs Temp 99.1 F 03/02/18 23:45 Pulse 108 H 03/03/18 05:06 Resp 20 03/02/18 23:45 BP 116/66 03/02/18 23:45 Pulse Ox 95 03/02/18 23:45 - Labs Result Diagrams: 03/03/18 08:33 03/03/18 08:33 Labs: Laboratory Results - last 24 hr 03/02/18 03/02/18 03/02/18 12:04 12:04 12:04 WBC 7.8 RBC 4.99 Hgb 15.3 Hct 43.2 MCV 86.6 MCH 30.7 MCHC 35.4 RDW 13.6 Plt Count 215 MPV 9.1 Neut % (Auto) 73.8 Lymph % (Auto) 18.0 L Clark % (Auto) 6.9 Eos % (Auto) 0.9 Baso % (Auto) 0.4 Neut # (Auto) 5.8 Lymph # (Auto) 1.4 Clark # (Auto) 0.5 Eos # (Auto) 0.1 Baso # (Auto) 0.0 Puncture Site pCO2 pO2 HCO3 ABG pH ABG Total CO2 ABG O2 Saturation ABG Base Excess ABG Hemoglobin ABG Carboxyhemoglobin POC ABG HHb (Measured) ABG Methemoglobin [place] Test VBG pH VBG pCO2 VBG HCO3 VBG Total CO2 VBG O2 Sat (Calc) VBG Base Excess VBG Potassium A-a O2 Difference Respiratory Index Hgb O2 Saturation Glucose Lactate FiO2 Sodium 132 Potassium 6.7 H* Chloride 92 L Carbon Dioxide 25 Anion Gap 22 H BUN 33 H Creatinine 2.1 H Est GFR ( Amer) 39 Est GFR (Non-Af Amer) 32 POC Glucose (mg/dL) Random Glucose 268 H Hemoglobin A1c Calcium 10.0 Total Bilirubin 1.4 H AST 33 ALT 35 Alkaline Phosphatase 65 Troponin I 0.0170 NT-Pro-B Natriuret Pep 84.7 Total Protein 8.0 Albumin 4.3 Globulin 3.7 Albumin/Globulin Ratio 1.2 Triglycerides 120 Cholesterol 117 LDL Cholesterol Direct 70 HDL Cholesterol 29 L Lipase 49 Venous Blood Potassium Influenza Typ A,B (EIA) Blood Type O POSITIVE Antibody Screen Negative 03/02/18 03/02/18 03/02/18 12:35 15:42 17:12 WBC RBC Hgb Hct MCV MCH MCHC RDW Plt Count MPV Neut % (Auto) Lymph % (Auto) Clark % (Auto) Eos % (Auto) Baso % (Auto) Neut # (Auto) Lymph # (Auto) Clark # (Auto) Eos # (Auto) Baso # (Auto) Puncture Site pCO2 pO2 28 L HCO3 ABG pH ABG Total CO2 ABG O2 Saturation ABG Base Excess ABG Hemoglobin ABG Carboxyhemoglobin POC ABG HHb (Measured) ABG Methemoglobin [place] Test VBG pH 7.29 L VBG pCO2 52 VBG HCO3 21.7 VBG Total CO2 26.6 VBG O2 Sat (Calc) 51.2 VBG Base Excess -2.3 L VBG Potassium 5.7 H A-a O2 Difference Respiratory Index Hgb O2 Saturation Glucose 253 H Lactate 2.3 H FiO2 Sodium 129.0 L Potassium Chloride 97.0 L Carbon Dioxide Anion Gap BUN Creatinine Est GFR ( Amer) Est GFR (Non-Af Amer) POC Glucose (mg/dL) 234 H Random Glucose Hemoglobin A1c 9.1 H Calcium Total Bilirubin AST ALT Alkaline Phosphatase Troponin I NT-Pro-B Natriuret Pep Total Protein Albumin Globulin Albumin/Globulin Ratio Triglycerides Cholesterol LDL Cholesterol Direct HDL Cholesterol Lipase Venous Blood Potassium 5.7 H Influenza Typ A,B (EIA) Blood Type Antibody Screen 03/02/18 03/02/18 03/02/18 18:17 18:17 19:55 WBC 8.1 RBC 4.96 Hgb 14.8 Hct 42.9 MCV 86.5 MCH 29.7 MCHC 34.4 RDW 13.8 Plt Count 208 MPV 8.6 Neut % (Auto) 75.5 H Lymph % (Auto) 16.6 L Clark % (Auto) 6.4 Eos % (Auto) 0.6 Baso % (Auto) 0.9 Neut # (Auto) 6.1 Lymph # (Auto) 1.3 Clark # (Auto) 0.5 Eos # (Auto) 0.1 Baso # (Auto) 0.1 Puncture Site Lr pCO2 44 pO2 54 L HCO3 26.2 ABG pH 7.40 ABG Total CO2 28.7 H ABG O2 Saturation 92.3 L ABG Base Excess 2.0 ABG Hemoglobin 14.5 ABG Carboxyhemoglobin 2.8 H POC ABG HHb (Measured) 7.4 H ABG Methemoglobin 1.2 [place] Test Po VBG pH VBG pCO2 VBG HCO3 VBG Total CO2 VBG O2 Sat (Calc) VBG Base Excess VBG Potassium A-a O2 Difference 41.0 Respiratory Index 0.8 Hgb O2 Saturation 88.6 L Glucose Lactate FiO2 21.0 Sodium 134 Potassium 6.9 H* Chloride 96 L Carbon Dioxide 25 Anion Gap 20 BUN 37 H Creatinine 2.1 H Est GFR ( Amer) 39 Est GFR (Non-Af Amer) 32 POC Glucose (mg/dL) Random Glucose 242 H Hemoglobin A1c Calcium 9.6 Total Bilirubin 1.3 AST 27 ALT 38 Alkaline Phosphatase 57 Troponin I NT-Pro-B Natriuret Pep Total Protein 7.3 Albumin 4.0 Globulin 3.3 Albumin/Globulin Ratio 1.2 Triglycerides Cholesterol LDL Cholesterol Direct HDL Cholesterol Lipase Venous Blood Potassium Influenza Typ A,B (EIA) Blood Type Antibody Screen 03/02/18 03/02/18 03/02/18 21:40 21:52 Unknown WBC RBC Hgb Hct MCV MCH MCHC RDW Plt Count MPV Neut % (Auto) Lymph % (Auto) Clark % (Auto) Eos % (Auto) Baso % (Auto) Neut # (Auto) Lymph # (Auto) Clark # (Auto) Eos # (Auto) Baso # (Auto) Puncture Site pCO2 pO2 HCO3 ABG pH ABG Total CO2 ABG O2 Saturation ABG Base Excess ABG Hemoglobin ABG Carboxyhemoglobin POC ABG HHb (Measured) ABG Methemoglobin [place] Test VBG pH VBG pCO2 VBG HCO3 VBG Total CO2 VBG O2 Sat (Calc) VBG Base Excess VBG Potassium A-a O2 Difference Respiratory Index Hgb O2 Saturation Glucose Lactate FiO2 Sodium 137 Potassium 5.2 Chloride 95 L Carbon Dioxide 29 Anion Gap 18 BUN 40 H Creatinine 1.9 H Est GFR ( Amer) 44 Est GFR (Non-Af Amer) 36 POC Glucose (mg/dL) 257 H Random Glucose 262 H Hemoglobin A1c Calcium 9.7 Total Bilirubin AST ALT Alkaline Phosphatase Troponin I NT-Pro-B Natriuret Pep Total Protein Albumin Globulin Albumin/Globulin Ratio Triglycerides Cholesterol LDL Cholesterol Direct HDL Cholesterol Lipase Venous Blood Potassium Influenza Typ A,B (EIA) Negative for flu a/b Blood Type Antibody Screen 03/03/18 06:48 WBC RBC Hgb Hct MCV MCH MCHC RDW Plt Count MPV Neut % (Auto) Lymph % (Auto) Clark % (Auto) Eos % (Auto) Baso % (Auto) Neut # (Auto) Lymph # (Auto) Clark # (Auto) Eos # (Auto) Baso # (Auto) Puncture Site pCO2 pO2 HCO3 ABG pH ABG Total CO2 ABG O2 Saturation ABG Base Excess ABG Hemoglobin ABG Carboxyhemoglobin POC ABG HHb (Measured) ABG Methemoglobin [place] Test VBG pH VBG pCO2 VBG HCO3 VBG Total CO2 VBG O2 Sat (Calc) VBG Base Excess VBG Potassium A-a O2 Difference Respiratory Index Hgb O2 Saturation Glucose Lactate FiO2 Sodium Potassium Chloride Carbon Dioxide Anion Gap BUN Creatinine Est GFR ( Amer) Est GFR (Non-Af Amer) POC Glucose (mg/dL) 154 H Random Glucose Hemoglobin A1c Calcium Total Bilirubin AST ALT Alkaline Phosphatase Troponin I NT-Pro-B Natriuret Pep Total Protein Albumin Globulin Albumin/Globulin Ratio Triglycerides Cholesterol LDL Cholesterol Direct HDL Cholesterol Lipase Venous Blood Potassium Influenza Typ A,B (EIA) Blood Type Antibody Screen Assessment & Plan - Assessment and Plan (Free Text) Assessment: 62 year old male with PMH of SBO six years ago (treated at [facility] in [facility]), uncontrolled T2DM, HTN, and Obesity presenting with abdominal pain. Active treatment of SBO with transition point at ileum noted on CT A/P without contrast. Similar presentation with SBO six years ago which resolved conservatively with NGT decompression. No prior EGD or colonoscopy. Plan: -DDx-stricture, bezoar -ordered repeat abdominal flat plate -no BM/flatus on morning evaluation -surgery following- appreciate recommendations -continue NGT decompression -IVFs, pain control if no improvement in symptoms, may require surgical intervention -will benefit from luminal exam in outpatient setting after obstruction resolves - <Orlando Martinez - Last Filed: 03/03/18 13:08> Meds - Medications Medications: Current Medications Acetaminophen (Tylenol 325mg Tab) 650 mg PO Q6 PRN PRN Reason: Fever >100.4 F Heparin Sodium (Porcine) (Heparin) 5,000 units SC Q12 [facility] Last Admin: 03/03/18 10:30 Dose: 5,000 units Sodium Chloride (Sodium Chloride 0.9%) 1,000 mls @ 150 mls/hr IV .Q6H40M [facility] Insulin Human Regular (Novolin R) 0 unit SC ACHS [facility] PRN Reason: Protocol Last Admin: 03/03/18 07:35 Dose: Not Given Metoclopramide HCl (Reglan) 10 mg IVP Q6 [facility] Stop: 03/04/18 12:01 Last Admin: 03/03/18 06:10 Dose: 10 mg Morphine Sulfate (Morphine) 1 mg IVP Q4 PRN PRN Reason: Pain, severe (8-10) Last Admin: 03/02/18 17:14 Dose: 1 mg Ondansetron HCl (Zofran Inj) 4 mg IVP Q4 PRN PRN Reason: Nausea/Vomiting Last Admin: 03/02/18 17:14 Dose: 4 mg Pantoprazole Sodium (Protonix Inj) 40 mg IVP DAILY [facility] Last Admin: 03/03/18 10:30 Dose: 40 mg Results - Vital Signs Recent Vital Signs: Last Vital Signs Temp 98.2 F 03/03/18 07:00 Pulse 99 H 03/03/18 07:43 Resp 20 03/03/18 07:00 BP 115/75 03/03/18 07:00 Pulse Ox 94 L 03/03/18 07:00 - Labs Result Diagrams: 03/03/18 08:33 03/03/18 08:33 Labs: Laboratory Results - last 24 hr 03/02/18 03/02/18 03/02/18 12:04 15:42 17:12 WBC RBC Hgb Hct MCV MCH MCHC RDW Plt Count MPV Neut % (Auto) Lymph % (Auto) Clark % (Auto) Eos % (Auto) Baso % (Auto) Neut # (Auto) Lymph # (Auto) Clark # (Auto) Eos # (Auto) Baso # (Auto) Puncture Site pCO2 pO2 HCO3 ABG pH ABG Total CO2 ABG O2 Saturation ABG Base Excess ABG Hemoglobin ABG Carboxyhemoglobin POC ABG HHb (Measured) ABG Methemoglobin [place] Test A-a O2 Difference Respiratory Index Hgb O2 Saturation FiO2 Sodium 132 Potassium 6.7 H* Chloride 92 L Carbon Dioxide 25 Anion Gap 22 H BUN 33 H Creatinine 2.1 H Est GFR ( Amer) 39 Est GFR (Non-Af Amer) 32 POC Glucose (mg/dL) 234 H Random Glucose 268 H Hemoglobin A1c 9.1 H Lactic Acid Calcium 10.0 Total Bilirubin 1.4 H AST 33 ALT 35 Alkaline Phosphatase 65 Troponin I 0.0170 NT-Pro-B Natriuret Pep 84.7 Total Protein 8.0 Albumin 4.3 Globulin 3.7 Albumin/Globulin Ratio 1.2 Triglycerides 120 Cholesterol 117 LDL Cholesterol Direct 70 HDL Cholesterol 29 L Lipase 49 Influenza Typ A,B (EIA) 03/02/18 03/02/18 03/02/18 18:17 18:17 19:55 WBC 8.1 RBC 4.96 Hgb 14.8 Hct 42.9 MCV 86.5 MCH 29.7 MCHC 34.4 RDW 13.8 Plt Count 208 MPV 8.6 Neut % (Auto) 75.5 H Lymph % (Auto) 16.6 L Clark % (Auto) 6.4 Eos % (Auto) 0.6 Baso % (Auto) 0.9 Neut # (Auto) 6.1 Lymph # (Auto) 1.3 Clark # (Auto) 0.5 Eos # (Auto) 0.1 Baso # (Auto) 0.1 Puncture Site Lr pCO2 44 pO2 54 L HCO3 26.2 ABG pH 7.40 ABG Total CO2 28.7 H ABG O2 Saturation 92.3 L ABG Base Excess 2.0 ABG Hemoglobin 14.5 ABG Carboxyhemoglobin 2.8 H POC ABG HHb (Measured) 7.4 H ABG Methemoglobin 1.2 [place] Test Po A-a O2 Difference 41.0 Respiratory Index 0.8 Hgb O2 Saturation 88.6 L FiO2 21.0 Sodium 134 Potassium 6.9 H* Chloride 96 L Carbon Dioxide 25 Anion Gap 20 BUN 37 H Creatinine 2.1 H Est GFR ( Amer) 39 Est GFR (Non-Af Amer) 32 POC Glucose (mg/dL) Random Glucose 242 H Hemoglobin A1c Lactic Acid Calcium 9.6 Total Bilirubin 1.3 AST 27 ALT 38 Alkaline Phosphatase 57 Troponin I NT-Pro-B Natriuret Pep Total Protein 7.3 Albumin 4.0 Globulin 3.3 Albumin/Globulin Ratio 1.2 Triglycerides Cholesterol LDL Cholesterol Direct HDL Cholesterol Lipase Influenza Typ A,B (EIA) 03/02/18 03/02/18 03/02/18 21:40 21:52 Unknown WBC RBC Hgb Hct MCV MCH MCHC RDW Plt Count MPV Neut % (Auto) Lymph % (Auto) Clark % (Auto) Eos % (Auto) Baso % (Auto) Neut # (Auto) Lymph # (Auto) Clark # (Auto) Eos # (Auto) Baso # (Auto) Puncture Site pCO2 pO2 HCO3 ABG pH ABG Total CO2 ABG O2 Saturation ABG Base Excess ABG Hemoglobin ABG Carboxyhemoglobin POC ABG HHb (Measured) ABG Methemoglobin [place] Test A-a O2 Difference Respiratory Index Hgb O2 Saturation FiO2 Sodium 137 Potassium 5.2 Chloride 95 L Carbon Dioxide 29 Anion Gap 18 BUN 40 H Creatinine 1.9 H Est GFR ( Amer) 44 Est GFR (Non-Af Amer) 36 POC Glucose (mg/dL) 257 H Random Glucose 262 H Hemoglobin A1c Lactic Acid Calcium 9.7 Total Bilirubin AST ALT Alkaline Phosphatase Troponin I NT-Pro-B Natriuret Pep Total Protein Albumin Globulin Albumin/Globulin Ratio Triglycerides Cholesterol LDL Cholesterol Direct HDL Cholesterol Lipase Influenza Typ A,B (EIA) Negative for flu a/b 03/03/18 03/03/18 03/03/18 06:48 08:33 08:33 WBC 5.6 RBC 4.76 Hgb 14.2 Hct 40.9 MCV 86.0 MCH 29.8 MCHC 34.7 RDW 13.9 Plt Count 185 MPV 9.0 Neut % (Auto) 53.8 Lymph % (Auto) 32.0 Clark % (Auto) 11.8 H Eos % (Auto) 2.2 Baso % (Auto) 0.2 Neut # (Auto) 3.0 Lymph # (Auto) 1.8 Clark # (Auto) 0.7 Eos # (Auto) 0.1 Baso # (Auto) 0.0 Puncture Site pCO2 pO2 HCO3 ABG pH ABG Total CO2 ABG O2 Saturation ABG Base Excess ABG Hemoglobin ABG Carboxyhemoglobin POC ABG HHb (Measured) ABG Methemoglobin [place] Test A-a O2 Difference Respiratory Index Hgb O2 Saturation FiO2 Sodium 138 Potassium 4.5 Chloride 101 Carbon Dioxide 28 Anion Gap 13 BUN 36 H Creatinine 1.2 Est GFR ( Amer) > 60 Est GFR (Non-Af Amer) > 60 POC Glucose (mg/dL) 154 H Random Glucose 153 H Hemoglobin A1c Lactic Acid Calcium 8.9 Total Bilirubin 1.1 AST 30 ALT 24 Alkaline Phosphatase 45 Troponin I NT-Pro-B Natriuret Pep Total Protein 6.6 Albumin 3.6 Globulin 3.0 Albumin/Globulin Ratio 1.2 Triglycerides Cholesterol LDL Cholesterol Direct HDL Cholesterol Lipase Influenza Typ A,B (EIA) 03/03/18 03/03/18 08:33 11:04 WBC RBC Hgb Hct MCV MCH MCHC RDW Plt Count MPV Neut % (Auto) Lymph % (Auto) Clark % (Auto) Eos % (Auto) Baso % (Auto) Neut # (Auto) Lymph # (Auto) Clark # (Auto) Eos # (Auto) Baso # (Auto) Puncture Site pCO2 pO2 HCO3 ABG pH ABG Total CO2 ABG O2 Saturation ABG Base Excess ABG Hemoglobin ABG Carboxyhemoglobin POC ABG HHb (Measured) ABG Methemoglobin [place] Test A-a O2 Difference Respiratory Index Hgb O2 Saturation FiO2 Sodium Potassium Chloride Carbon Dioxide Anion Gap BUN Creatinine Est GFR ( Amer) Est GFR (Non-Af Amer) POC Glucose (mg/dL) 200 H Random Glucose Hemoglobin A1c Lactic Acid 1.3 Calcium Total Bilirubin AST ALT Alkaline Phosphatase Troponin I NT-Pro-B Natriuret Pep Total Protein Albumin Globulin Albumin/Globulin Ratio Triglycerides Cholesterol LDL Cholesterol Direct HDL Cholesterol Lipase Influenza Typ A,B (EIA) Attending/Attestation - Attestation I have personally seen and examined this patient.: Yes I have fully participated in the care of the patient.: Yes I have reviewed all pertinent clinical information: Yes Notes (Text): 03/03/18 13:07 62 year old male with prior h/o SBO admitted with SBO, with transition at the ileum. Recommend NG to LIS. IV hydration/electolyte replacement. Surgical eval. Colonoscopy outpatient if it resolves without intervention.
[2018-03-03 08:51] LABS: BASO % 0.2 % (0.0-2.0); EOS # 0.1 K/uL (0.0-0.7); EOS % 2.2 % (0.0-4.0); HEMOGLOBIN 14.2 g/dL (12.0-18.0); LYMPH # 1.8 K/uL (1.0-4.3); MEAN CORPUSCULAR HEMOGLOBIN 29.8 pg (27.0-31.0); MEAN CORPUSCULAR HGB CONC 34.7 g/dL (33.0-37.0); MONO # 0.7 K/uL (0.0-0.8); MONO % 11.8 % (0.0-10.0); NEUT % 53.8 % (50.0-75.0); NRBC % 0.1 % (0.0-2.0); RBC 4.76 Mil/uL (4.40-5.90); RED CELL DISTRIBUTION WIDTH 13.9 % (11.5-14.5); WHITE BLOOD COUNT 5.6 K/uL (4.8-10.8)
[2018-03-03 08:59] LABS: ALB/GLOB RATIO 1.2 (1.0-2.1); ALBUMIN 3.6 g/dL (3.5-5.0); ALT/SGPT 24 U/L (21-72); AST/SGOT 30 U/L (17-59); BLOOD UREA NITROGEN 36 mg/dL (9-20); CALCIUM 8.9 mg/dl (8.6-10.4); GFR AFRICAN-AMERICAN > 60; GFR NON-AFRICAN AMERICAN > 60
--- NOTE | 2018-03-03 09:39 | RAD ---
HISTORY: Small bowel obstruction COMPARISON: 03/02/2018 FINDINGS: BOWEL: Multiple dilated small bowel loops. Retained feces noted in the ascending colon. Findings consistent with mechanical small bowel obstruction. No masses or abnormal intra-abdominal calcifications. No hepatic or splenic enlargement. Nasogastric tube noted terminating in the left upper quadrant of the abdomen. BONES: Normal. OTHER FINDINGS: None. IMPRESSION: Findings consistent with mechanical small bowel obstruction.
--- NOTE | 2018-03-03 11:06 | CP.PCM.PN ---
Addendum entered and electronically signed by Rowena Melo DO 03/03/18 11:14 : NO BOWEL MOVEMENT OR FLATUS - pending surgical recommendations Original Note: <Rowena Melo - Last Filed: 03/03/18 11:03> Subjective - Date & Time of Evaluation Date of Evaluation: 03/03/18 Time of Evaluation: 08:00 - Subjective Subjective: Medicine Note for Hospitalist Service- Dr. Nomi Castañeda Patient was seen and examined at bedside. Patient reports he continues to have abdominal pain, nausea, and 1 episode of vomiting this morning. Denied any bowel movements or passing flatus. Denied fever, chills, headaches, loss of sensation, tingling in extremities, chest pain, or urinary symptoms. Objective - Vital Signs/Intake and Output Vital Signs (last 24 hours): Temp Pulse Resp BP Pulse Ox 98.2 F 99 H 20 115/75 94 L 03/03/18 07:00 03/03/18 07:43 03/03/18 07:00 03/03/18 07:00 03/03/18 07:00 Intake and Output: 03/03/18 03/03/18 06:59 18:59 Intake Total 2375 Output Total 1000 Balance 1375 - Medications Medications: Current Medications Acetaminophen (Tylenol 325mg Tab) 650 mg PO Q6 PRN PRN Reason: Fever >100.4 F Heparin Sodium (Porcine) (Heparin) 5,000 units SC Q12 [facility] Last Admin: 03/03/18 10:30 Dose: 5,000 units Sodium Chloride (Sodium Chloride 0.9%) 1,000 mls @ 250 mls/hr IV .Q4H [facility] Last Admin: 03/03/18 05:02 Dose: 250 mls/hr Insulin Human Regular (Novolin R) 0 unit SC ACHS [facility] PRN Reason: Protocol Last Admin: 03/03/18 07:35 Dose: Not Given Metoclopramide HCl (Reglan) 10 mg IVP Q6 [facility] Stop: 03/04/18 12:01 Last Admin: 03/03/18 06:10 Dose: 10 mg Morphine Sulfate (Morphine) 1 mg IVP Q4 PRN PRN Reason: Pain, severe (8-10) Last Admin: 03/02/18 17:14 Dose: 1 mg Ondansetron HCl (Zofran Inj) 4 mg IVP Q4 PRN PRN Reason: Nausea/Vomiting Last Admin: 03/02/18 17:14 Dose: 4 mg Pantoprazole Sodium (Protonix Inj) 40 mg IVP DAILY [facility] Last Admin: 03/03/18 10:30 Dose: 40 mg - Labs Labs: 03/03/18 08:33 03/03/18 08:33 - Additional Findings Additional findings: - Constitutional Appears: No Acute Distress - Head Exam Head Exam: NORMAL INSPECTION, NORMOCEPHALIC - Eye Exam Eye Exam: EOMI, Normal appearance, PERRL Pupil Exam: NORMAL ACCOMODATION - ENT Exam ENT Exam: Mucous Membranes Moist - Respiratory Exam Respiratory Exam: Clear to Auscultation Bilateral, NORMAL BREATHING PATTERN - Cardiovascular Exam Cardiovascular Exam: REGULAR RHYTHM - GI/Abdominal Exam GI & Abdominal Exam: Distended, Soft, Hypoactive Sounds, Tenderness. absent: Guarding, Hernia, Pulsatile Mass - Rectal Exam Rectal Exam: Deferred - Extremities Exam Extremities exam: Positive for: normal inspection, pedal pulses present. Negative for: pedal edema, tenderness - Neurological Exam Neurological exam: Alert, CN II-XII Intact, Oriented x3 - Psychiatric Exam Psychiatric exam: Normal Affect, Normal Mood - Skin Skin Exam: Dry, Intact, Normal Color, Warm Assessment and Plan - Assessment and Plan (Free Text) Assessment: 62 year old male with PMHx of HTN (norvasc) and Uncontrolled T2DM (HbgA1C 9.1; on 70/30 and lantus) presents to the ED with severe abdominal pain that started this morning found to have SBO. NGT placed with immediate relief and decompression with 650cc output bilious content. Previous SBO was 6 years ago relieved with NGT, no prior surgical intervention. Denied prior abdominal surgery or colonoscopy. Total 1400cc output since insertion 03/02/18. Plan: SBO - Surgery consulted - Dr. Gibbons - help appreciated - pending reccs - Gastroenterology consulted - Dr. Garcia - help appreciated -possible - stricture, bezoar - History of SBO 6 years ago, NGT placed, no surgical intervention, no prior colonoscopy - Lactate 2.3 s/p 1 L, on NS @ 250cc/hr - lactat 1.3 this morning Imaging: - Abdomen Xray: SBO - CT Abdomen & Pelvis: SBO vs illeus - Repeat abdominal Xray s/p 1400cc output via NGT- persistent SBO Meds: - NS @150 cc/hr - Zofran, Reglan PRN - NGT in place with 1400 cc bilious output since insertion, on continuous suction Hx T2DM, Uncontrolled - Accuchecks - HbgA1C- 9.1 - ISS- medium - Currently NPO Hx HTN - Currently hypotensive, will hold on home dose of Norvasc 5 mg Acute TERRIE - RESOLVED Hyperkalemia - RESOLVED - 6.7 on admission, s/p calcium gluconate, D50, Insulin - EKG: sinus tachycardia, no ST changes Prophylaxis - GI: protonix IV - DVT: SCDs, heparin Q12 Disposition: Persistent SBO despite NGT decompression, will follow up with surgical recommendations. DW Dr. Andrew Dimas, Rowena Melo DO, PGY-1 <Andrew Dimas - Last Filed: 03/03/18 13:15> Objective - Vital Signs/Intake and Output Vital Signs (last 24 hours): Temp Pulse Resp BP Pulse Ox 98.2 F 99 H 20 115/75 94 L 03/03/18 07:00 03/03/18 07:43 03/03/18 07:00 03/03/18 07:00 03/03/18 07:00 Intake and Output: 03/03/18 03/03/18 06:59 18:59 Intake Total 2375 Output Total 1000 Balance 1375 - Medications Medications: Current Medications Acetaminophen (Tylenol 325mg Tab) 650 mg PO Q6 PRN PRN Reason: Fever >100.4 F Heparin Sodium (Porcine) (Heparin) 5,000 units SC Q12 [facility] Last Admin: 03/03/18 10:30 Dose: 5,000 units Sodium Chloride (Sodium Chloride 0.9%) 1,000 mls @ 150 mls/hr IV .Q6H40M [facility] Insulin Human Regular (Novolin R) 0 unit SC ACHS [facility] PRN Reason: Protocol Last Admin: 03/03/18 07:35 Dose: Not Given Metoclopramide HCl (Reglan) 10 mg IVP Q6 [facility] Stop: 03/04/18 12:01 Last Admin: 03/03/18 06:10 Dose: 10 mg Morphine Sulfate (Morphine) 1 mg IVP Q4 PRN PRN Reason: Pain, severe (8-10) Last Admin: 03/02/18 17:14 Dose: 1 mg Ondansetron HCl (Zofran Inj) 4 mg IVP Q4 PRN PRN Reason: Nausea/Vomiting Last Admin: 03/02/18 17:14 Dose: 4 mg Pantoprazole Sodium (Protonix Inj) 40 mg IVP DAILY [facility] Last Admin: 03/03/18 10:30 Dose: 40 mg - Labs Labs: 03/03/18 08:33 03/03/18 08:33 Attending/Attestation - Attestation I have personally seen and examined this patient.: Yes I have fully participated in the care of the patient.: Yes I have reviewed all pertinent clinical information, including history, physical exam and plan: Yes Notes (Text): 03/03/18 13:11 Medical attending: Patient was seen and examined by me. Agree with the above note by the resident The patient has had additional suction from the NGT overnight. He has had some relief he says, softer, not as tender. His lab work is also better overall. Lactic acid was stable overnight In the mean time he remains on IVF as well as NPO The patient, we explained to him, if he does not have a BM may require further intervention by surgery. Thank you Andrew Dimas
--- NOTE | 2018-03-03 12:10 | RAD ---
HISTORY: IVF, access for fluid overload COMPARISON: 03/02/2018. FINDINGS: LUNGS: No active pulmonary disease. PLEURA: No significant pleural effusion identified, no pneumothorax apparent. CARDIOVASCULAR: No radiographic findings to suggest acute or significant cardiovascular disease. OSSEOUS STRUCTURES: No significant abnormalities. VISUALIZED UPPER ABDOMEN: Normal. OTHER FINDINGS: Stable position of nasogastric tube. IMPRESSION: No active disease. No significant interval change compared to the prior examination(s).
--- NOTE | 2018-03-03 12:44 | CARD ---
APPROVED REPORT EKG Measurement Heart [id number] <Conclusion> Normal sinus rhythm Normal ECG
[2018-03-04] MEDS: Sodium Chloride 0.9% 1,000 ML IV SCH ×4 (00:28→13:51)
[2018-03-04 07:18] LABS: HEMOGLOBIN 12.9 g/dL (12.0-18.0); MEAN CELL VOLUME 86.5 fL (80.0-94.0); MEAN CORPUSCULAR HEMOGLOBIN 30.2 pg (27.0-31.0); MEAN CORPUSCULAR HGB CONC 34.9 g/dL (33.0-37.0); MEAN PLATELET VOLUME 8.7 fL (7.2-11.7); RBC 4.26 Mil/uL (4.40-5.90); RED CELL DISTRIBUTION WIDTH 13.9 % (11.5-14.5); WHITE BLOOD COUNT 3.2 K/uL (4.8-10.8)
--- NOTE | 2018-03-04 07:22 | CP.PCM.PN ---
Subjective - Date & Time of Evaluation Date of Evaluation: 03/04/18 Time of Evaluation: 07:20 - Subjective Subjective: Surgery: Dr. Hu Patient reports flatus and bowel movement. States he feels completely better and would like to go home. Objective - Vital Signs/Intake and Output Vital Signs (last 24 hours): Temp Pulse Resp BP Pulse Ox 99.6 F 110 H 20 117/73 91 L 03/03/18 23:32 03/04/18 03:53 03/03/18 23:32 03/03/18 23:32 03/03/18 23:32 Intake and Output: 03/04/18 03/04/18 06:59 18:59 Intake Total 1050 Output Total 1000 Balance 50 - Medications Medications: Current Medications Acetaminophen (Tylenol 325mg Tab) 650 mg PO Q6 PRN PRN Reason: Fever >100.4 F Heparin Sodium (Porcine) (Heparin) 5,000 units SC Q12 [facility] Last Admin: 03/03/18 22:25 Dose: 5,000 units Sodium Chloride (Sodium Chloride 0.9%) 1,000 mls @ 150 mls/hr IV .Q6H40M [facility] Last Admin: 03/04/18 02:54 Dose: 150 mls/hr Insulin Human Regular (Novolin R) 0 unit SC ACHS [facility] PRN Reason: Protocol Last Admin: 03/03/18 22:28 Dose: Not Given Metoclopramide HCl (Reglan) 10 mg IVP Q6 [facility] Stop: 03/04/18 12:01 Last Admin: 03/04/18 05:57 Dose: 10 mg Morphine Sulfate (Morphine) 1 mg IVP Q4 PRN PRN Reason: Pain, severe (8-10) Last Admin: 03/02/18 17:14 Dose: 1 mg Ondansetron HCl (Zofran Inj) 4 mg IVP Q4 PRN PRN Reason: Nausea/Vomiting Last Admin: 03/02/18 17:14 Dose: 4 mg Pantoprazole Sodium (Protonix Inj) 40 mg IVP DAILY [facility] Last Admin: 03/03/18 10:30 Dose: 40 mg - Labs Labs: 03/03/18 08:33 03/03/18 08:33 - Constitutional Appears: Non-toxic, No Acute Distress - Head Exam Head Exam: ATRAUMATIC, NORMOCEPHALIC - Eye Exam Eye Exam: EOMI, Normal appearance - ENT Exam ENT Exam: Mucous Membranes Moist - Respiratory Exam Respiratory Exam: NORMAL BREATHING PATTERN. absent: Respiratory Distress - Cardiovascular Exam Cardiovascular Exam: REGULAR RHYTHM. absent: Tachycardia - GI/Abdominal Exam GI & Abdominal Exam: Soft. absent: Distended, Guarding, Rigid, Tenderness, Rebound Assessment and Plan - Assessment and Plan (Free Text) Assessment: 62 y/o male w/ SBO, resolved Plan: -NGT removed -ok for CLD this am then advance diet as tolerated -OOB -if tolerating diet and continued bowel function ok for d/c home -d/w Dr. Hu [facility] PGY3
[2018-03-04] MEDS: (Novolin R) Insulin Human Regular 100 units/ml vial SC SCH ×3 (07:40→16:34)
[2018-03-04 08:13] LABS: BLOOD UREA NITROGEN 17 mg/dL (9-20); CALCIUM 8.6 mg/dl (8.6-10.4); GFR AFRICAN-AMERICAN > 60; GFR NON-AFRICAN AMERICAN > 60
[2018-03-04 08:14] LABS: ALB/GLOB RATIO 1.1 (1.0-2.1); ALBUMIN 3.3 g/dL (3.5-5.0); ALT/SGPT 29 U/L (21-72); AST/SGOT 29 U/L (17-59)
[2018-03-04 09:30] LABS: LYMPH # 0.4 K/uL (1.0-4.3); NEUT # 2.3 K/uL (1.8-7.0)
[2018-03-04 09:31] LABS: EOS # 0.2 K/uL (0.0-0.7); MONO # 0.4 K/uL (0.0-0.8)
--- NOTE | 2018-03-04 12:53 | CP.PCM.PN ---
<Lucinda Castañeda - Last Filed: 03/04/18 12:57> Subjective - Date & Time of Evaluation Date of Evaluation: 03/04/18 Time of Evaluation: 08:45 - Subjective Subjective: PGY4 GI Follow-up Pt seen and examined bedside tolerating diet denies any nausea and vomiting +BM ROS: 12 point ROS conducted, neg other than the above Objective - Vital Signs/Intake and Output Vital Signs (last 24 hours): Temp Pulse Resp BP Pulse Ox 99.1 F 80 20 112/56 L 97 03/04/18 09:04 03/04/18 09:04 03/04/18 09:04 03/04/18 09:04 03/04/18 09:04 Intake and Output: 03/04/18 03/04/18 06:59 18:59 Intake Total 2250 Output Total 1200 Balance 1050 - Medications Medications: Current Medications Acetaminophen (Tylenol 325mg Tab) 650 mg PO Q6 PRN PRN Reason: Fever >100.4 F Heparin Sodium (Porcine) (Heparin) 5,000 units SC Q12 [facility] Last Admin: 03/04/18 09:39 Dose: 5,000 units Sodium Chloride (Sodium Chloride 0.9%) 1,000 mls @ 150 mls/hr IV .Q6H40M [facility] Last Admin: 03/04/18 02:54 Dose: 150 mls/hr Insulin Human Regular (Novolin R) 0 unit SC ACHS [facility] PRN Reason: Protocol Last Admin: 03/04/18 12:44 Dose: 2 unit Morphine Sulfate (Morphine) 1 mg IVP Q4 PRN PRN Reason: Pain, severe (8-10) Last Admin: 03/02/18 17:14 Dose: 1 mg Ondansetron HCl (Zofran Inj) 4 mg IVP Q4 PRN PRN Reason: Nausea/Vomiting Last Admin: 03/02/18 17:14 Dose: 4 mg Pantoprazole Sodium (Protonix Inj) 40 mg IVP DAILY [facility] Last Admin: 03/04/18 09:40 Dose: 40 mg - Labs Labs: 03/04/18 07:04 03/04/18 07:04 - Constitutional Appears: Well, No Acute Distress - Head Exam Head Exam: ATRAUMATIC, NORMOCEPHALIC - ENT Exam ENT Exam: Mucous Membranes Moist - Respiratory Exam Respiratory Exam: Clear to Ausculation Bilateral, NORMAL BREATHING PATTERN. absent: Rales, Rhonchi, Wheezes, Respiratory Distress - Cardiovascular Exam Cardiovascular Exam: REGULAR RHYTHM, +S1, +S2 - Extremities Exam Extremities Exam: Normal Inspection. absent: Joint Swelling, Pedal Edema - Neurological Exam Neurological Exam: Alert, Awake, Oriented x3 - Psychiatric Exam Psychiatric exam: Normal Affect, Normal Mood - Skin Skin Exam: Dry, Intact, Normal Color, Warm Assessment and Plan - Assessment and Plan (Free Text) Assessment: 62 year old male with PMH of SBO six years ago (treated at [facility] in [facility]), uncontrolled T2DM, HTN, and Obesity presenting with abdominal pain. SBO with transition point at ileum noted Chronic Constipation hx of SBO, resolved after conservative management Plan: -DDx-stricture, bezoar -BM/flatus on morning evaluation -s/p NG -surgery following- appreciate recommendations -IVFs, pain control -diet as tolerated -recommend continue bowel regiment -if pt continues to have nausea and vomiting, replace NG tube -will benefit from luminal exam in outpatient setting after obstruction resolves D/W Dr. Martinez <Orlando Martinez - Last Filed: 03/04/18 18:34> Objective - Vital Signs/Intake and Output Vital Signs (last 24 hours): Temp Pulse Resp BP Pulse Ox 98.3 F 92 H 20 109/70 95 03/04/18 15:15 03/04/18 15:15 03/04/18 15:15 03/04/18 15:15 03/04/18 15:15 Intake and Output: 03/04/18 03/04/18 06:59 18:59 Intake Total 2250 Output Total 1200 Balance 1050 - Medications Medications: Current Medications Acetaminophen (Tylenol 325mg Tab) 650 mg PO Q6 PRN PRN Reason: Fever >100.4 F Heparin Sodium (Porcine) (Heparin) 5,000 units SC Q12 [facility] Last Admin: 03/04/18 09:39 Dose: 5,000 units Sodium Chloride (Sodium Chloride 0.9%) 1,000 mls @ 150 mls/hr IV .Q6H40M [facility] Last Admin: 03/04/18 13:51 Dose: Not Given Insulin Human Regular (Novolin R) 0 unit SC ACHS [facility] PRN Reason: Protocol Last Admin: 03/04/18 16:34 Dose: Not Given Morphine Sulfate (Morphine) 1 mg IVP Q4 PRN PRN Reason: Pain, severe (8-10) Last Admin: 03/02/18 17:14 Dose: 1 mg Ondansetron HCl (Zofran Inj) 4 mg IVP Q4 PRN PRN Reason: Nausea/Vomiting Last Admin: 03/02/18 17:14 Dose: 4 mg Pantoprazole Sodium (Protonix Inj) 40 mg IVP DAILY [facility] Last Admin: 03/04/18 09:40 Dose: 40 mg Polyethylene Glycol (Miralax) 17 gm PO BID [facility] Last Admin: 03/04/18 17:34 Dose: 17 gm - Labs Labs: 03/04/18 07:04 03/04/18 07:04 Attending/Attestation - Attestation I have personally seen and examined this patient.: Yes I have fully participated in the care of the patient.: Yes I have reviewed all pertinent clinical information, including history, physical exam and plan: Yes Notes (Text): 03/04/18 18:33 62 year old male with SBO. Appears to be resolving. Advance diet as tolerated. Outpatiet colonsocopy. Surgery if persistent obstruction. Will sign off.
[2018-03-04 16:54] VITALS: BP 109/70; PULSE 92; TEMP 98.3; O2SAT 95
--- NOTE | 2018-03-04 17:10 | CP.PCM.DIS ---
<Kitty Holder - Last Filed: 03/04/18 17:05> Provider - Provider Date of Admission: 03/02/18 19:05 Attending physician: Andrew Dimas DO Primary care physician: Dr. Emerson Consults: Dr. Martinez - GI Time Spent in preparation of Discharge (in minutes): 35 Diagnosis - Discharge Diagnosis (1) SBO (small bowel obstruction) Status: Acute Hospital Course - Lab Results Lab Results: Most Recent Lab Values WBC 3.2 K/uL (4.8-10.8) L 03/04/18 07:04 RBC 4.26 Mil/uL (4.40-5.90) L 03/04/18 07:04 Hgb 12.9 g/dL (12.0-18.0) 03/04/18 07:04 Hct 36.9 % (35.0-51.0) 03/04/18 07:04 MCV 86.5 fL (80.0-94.0) 03/04/18 07:04 MCH 30.2 pg (27.0-31.0) 03/04/18 07:04 MCHC 34.9 g/dL (33.0-37.0) 03/04/18 07:04 RDW 13.9 % (11.5-14.5) 03/04/18 07:04 Plt Count 161 K/uL (130-400) 03/04/18 07:04 MPV 8.7 fL (7.2-11.7) 03/04/18 07:04 Neut % (Auto) 70.0 % (50.0-75.0) 03/04/18 07:04 Lymph % (Auto) 12.0 % (20.0-40.0) L 03/04/18 07:04 [place] % (Auto) 12.0 % (0.0-10.0) H 03/04/18 07:04 Eos % (Auto) 6.0 % (0.0-4.0) H 03/04/18 07:04 Baso % (Auto) 0.0 % (0.0-2.0) 03/04/18 07:04 Neut # (Auto) 2.3 K/uL (1.8-7.0) 03/04/18 07:04 Lymph # (Auto) 0.4 K/uL (1.0-4.3) L 03/04/18 07:04 [place] # (Auto) 0.4 K/uL (0.0-0.8) 03/04/18 07:04 Eos # (Auto) 0.2 K/uL (0.0-0.7) 03/04/18 07:04 Baso # (Auto) 0.0 K/uL (0.0-0.2) 03/04/18 07:04 Puncture Site Lr 03/02/18 19:55 pCO2 44 mm/Hg (35-45) 03/02/18 19:55 pO2 54 mm/Hg (80-100) L 03/02/18 19:55 HCO3 26.2 mmol/L (21-28) 03/02/18 19:55 ABG pH 7.40 (7.35-7.45) 03/02/18 19:55 ABG Total CO2 28.7 mmol/L (22-28) H 03/02/18 19:55 ABG O2 Saturation 92.3 % (95-98) L 03/02/18 19:55 ABG Base Excess 2.0 mmol/L (-2.0-3.0) 03/02/18 19:55 ABG Hemoglobin 14.5 g/dL (11.7-17.4) 03/02/18 19:55 ABG Carboxyhemoglobin 2.8 % (0.5-1.5) H 03/02/18 19:55 POC ABG HHb (Measured) 7.4 % (0.0-5.0) H 03/02/18 19:55 ABG Methemoglobin 1.2 % (0.0-3.0) 03/02/18 19:55 [place] Test Po 03/02/18 19:55 VBG pH 7.29 (7.32-7.43) L 03/02/18 12:35 VBG pCO2 52 mmHg (40-60) 03/02/18 12:35 VBG HCO3 21.7 mmol/L 03/02/18 12:35 VBG Total CO2 26.6 mmol/L (22-28) 03/02/18 12:35 VBG O2 Sat (Calc) 51.2 % (40-65) 03/02/18 12:35 VBG Base Excess -2.3 mmol/L (0.0-2.0) L 03/02/18 12:35 VBG Potassium 5.7 mmol/L (3.6-5.2) H 03/02/18 12:35 A-a O2 Difference 41.0 mm/Hg 03/02/18 19:55 Respiratory Index 0.8 03/02/18 19:55 Hgb O2 Saturation 88.6 % (95.0-98.0) L 03/02/18 19:55 Sodium 129.0 mmol/l (132-148) L 03/02/18 12:35 Chloride 97.0 mmol/L (98-107) L 03/02/18 12:35 Glucose 253 mg/dl (75-110) H 03/02/18 12:35 Lactate 2.3 mmol/L (0.7-2.1) H 03/02/18 12:35 FiO2 21.0 % 03/02/18 19:55 Sodium 141 mmol/L (132-148) 03/04/18 07:04 Potassium 4.1 mmol/L (3.6-5.2) 03/04/18 07:04 Chloride 104 mmol/L (98-107) 03/04/18 07:04 Carbon Dioxide 27 mmol/L (22-30) 03/04/18 07:04 Anion Gap 14 (10-20) 03/04/18 07:04 BUN 17 mg/dL (9-20) 03/04/18 07:04 Creatinine 0.8 mg/dL (0.8-1.5) 03/04/18 07:04 Est GFR ( Amer) > 60 03/04/18 07:04 Est GFR (Non-Af Amer) > 60 03/04/18 07:04 POC Glucose (mg/dL) 157 mg/dL (65-110) H 03/04/18 12:16 Random Glucose 144 mg/dL (75-110) H 03/04/18 07:04 Hemoglobin A1c 9.1 % (4.2-6.5) H 03/02/18 15:42 Lactic Acid 1.3 mmol/L (0.7-2.1) 03/03/18 08:33 Calcium 8.6 mg/dl (8.6-10.4) 03/04/18 07:04 Phosphorus 2.6 mg/dL (2.5-4.5) 03/04/18 07:04 Magnesium 1.5 mg/dL (1.6-2.3) L 03/04/18 07:04 Total Bilirubin 1.1 mg/dL (0.2-1.3) 03/04/18 07:04 AST 29 U/L (17-59) 03/04/18 07:04 ALT 29 U/L (21-72) 03/04/18 07:04 Alkaline Phosphatase 46 U/L (38-126) 03/04/18 07:04 Troponin I 0.0170 ng/mL (0.00-0.120) 03/02/18 12:04 NT-Pro-B Natriuret Pep 84.7 pg/mL (0-900) 03/02/18 12:04 Total Protein 6.3 g/dL (6.3-8.3) 03/04/18 07:04 Albumin 3.3 g/dL (3.5-5.0) L 03/04/18 07:04 Globulin 3.0 gm/dL (2.2-3.9) 03/04/18 07:04 Albumin/Globulin Ratio 1.1 (1.0-2.1) 03/04/18 07:04 Triglycerides 120 mg/dL (0-149) 03/02/18 12:04 Cholesterol 117 mg/dL (0-199) 03/02/18 12:04 LDL Cholesterol Direct 70 mg/dL (0-129) 03/02/18 12:04 HDL Cholesterol 29 mg/dL (30-70) L 03/02/18 12:04 Lipase 49 U/L (23-300) 03/02/18 12:04 Venous Blood Potassium 5.7 mmol/L (3.6-5.2) H 03/02/18 12:35 Influenza Typ A,B (EIA) Negative for flu a/b (NEGATIVE) 03/02/18 Unknown Blood Type O POSITIVE 03/02/18 12:04 Antibody Screen Negative 03/02/18 12:04 - Hospital Course Hospital Course: PMHx: HTN, Uncontrolled T2DM PSHx: Denied Meds: As noted in HPI All: Denied SHx: Admitted to smoking 1/2 ppd > 30+ years. Denied alcohol, or illicit drug use FHx: Unremarkable PMD: Dr. Savage Patel On Admission: 62 year old male with PMHx of HTN (norvasc) and Uncontrolled T2DM (HbgA1C 9.1; on 70/30 and lantus) presents to the ED with severe abdominal pain that started this morning. Patient reported intense abdominal pain that started this morning. Last BM was loose at 0600, has not had flatus for 12+ hours. He was driving when he started having the pain. He parked and called 911 since the pain did not go away. Initially he was called as a code heart, serial EKGs and troponin were normal. Patient found to have SBO confirmed with CT abdomen and pelvis. Initially patient refused NGT but after vomiting bilious content, he agreed to the procedure. NGT placed with 650 cc of output. States similar pain 6 years ago where he was admitted for SBO, NGT placed and symptoms resolved w/o surgical intervention. Denies colonoscopy, denied any abdominal surgeries. Denied fever, chills, headache, chest pain, abdominal pain, n/v/d/c, or urinary symptoms. During hospital stay: He was found to have SBO. NGT placed with immediate relief and decompression with 650cc output bilious content. Previous SBO was 6 years ago relieved with NGT, no prior surgical intervention. Denied prior abdominal surgery or colonoscopy. Total 1400cc output since insertion 03/02/18. Surgery and GI were consulted. Patient has serial abdominal exams and started to pass flatus and had multiple bowel movements and symptoms improved. He was tolerating full liquid diet and was requesting to be discharged. On admission patient was found to be hyperkalemic. This was corrected with medications and EKG did not show any changes. Patient is stable for discharge home. He is to follow up with his primary care doctor within one week of discharge. Patient is to eat a bland soft diet and slowly advance to regular food only if he does not have pain, nausea, or vomiting. Patient is to return to the emergency room if symptoms return. All instructions explained to the patient and he agrees. *Please note this is only a summary of hospital event. Please refer to EMR for full admission details. Discharge Exam - Head Exam Head Exam: ATRAUMATIC, NORMOCEPHALIC - Eye Exam Eye Exam: EOMI, Normal appearance Pupil Exam: NORMAL ACCOMODATION - Respiratory Exam Respiratory Exam: NORMAL BREATHING PATTERN - Cardiovascular Exam Cardiovascular Exam: REGULAR RHYTHM, +S1, +S2 - GI/Abdominal Exam GI & Abdominal Exam: Normal Bowel Sounds, Soft. absent: Distended, Firm, Guarding, Tenderness - Extremities Exam Extremities exam: normal inspection - Back Exam Back exam: NORMAL INSPECTION - Neurological Exam Neurological exam: Alert, CN II-XII Intact, Oriented x3 - Psychiatric Exam Psychiatric exam: Normal Affect, Normal Mood Discharge Plan - Follow Up Plan Condition: IMPROVED Disposition: HOME/ ROUTINE Instructions: Small Bowel Obstruction (DC) Additional Instructions: Patient is stable for discharge home. He is to follow up with his primary care doctor within one week of discharge. Patient is to eat a bland soft diet and slowly advance to regular food only if he does not have pain, nausea, or vomiting. Patient is to return to the emergency room if symptoms return. All instructions explained to the patient and he agrees. Referrals: Paige Emerson MD [Staff Provider] - Orlando Martinez MD [Staff Provider] - <Andrew Dimas - Last Filed: 03/04/18 18:34> Provider - Provider Date of Admission: 03/02/18 19:05 Attending physician: Andrew Dimas DO Hospital Course - Lab Results Lab Results: Most Recent Lab Values WBC 3.2 K/uL (4.8-10.8) L 03/04/18 07:04 RBC 4.26 Mil/uL (4.40-5.90) L 03/04/18 07:04 Hgb 12.9 g/dL (12.0-18.0) 03/04/18 07:04 Hct 36.9 % (35.0-51.0) 03/04/18 07:04 MCV 86.5 fL (80.0-94.0) 03/04/18 07:04 MCH 30.2 pg (27.0-31.0) 03/04/18 07:04 MCHC 34.9 g/dL (33.0-37.0) 03/04/18 07:04 RDW 13.9 % (11.5-14.5) 03/04/18 07:04 Plt Count 161 K/uL (130-400) 03/04/18 07:04 MPV 8.7 fL (7.2-11.7) 03/04/18 07:04 Neut % (Auto) 70.0 % (50.0-75.0) 03/04/18 07:04 Lymph % (Auto) 12.0 % (20.0-40.0) L 03/04/18 07:04 [place] % (Auto) 12.0 % (0.0-10.0) H 03/04/18 07:04 Eos % (Auto) 6.0 % (0.0-4.0) H 03/04/18 07:04 Baso % (Auto) 0.0 % (0.0-2.0) 03/04/18 07:04 Neut # (Auto) 2.3 K/uL (1.8-7.0) 03/04/18 07:04 Lymph # (Auto) 0.4 K/uL (1.0-4.3) L 03/04/18 07:04 [place] # (Auto) 0.4 K/uL (0.0-0.8) 03/04/18 07:04 Eos # (Auto) 0.2 K/uL (0.0-0.7) 03/04/18 07:04 Baso # (Auto) 0.0 K/uL (0.0-0.2) 03/04/18 07:04 Puncture Site Lr 03/02/18 19:55 pCO2 44 mm/Hg (35-45) 03/02/18 19:55 pO2 54 mm/Hg (80-100) L 03/02/18 19:55 HCO3 26.2 mmol/L (21-28) 03/02/18 19:55 ABG pH 7.40 (7.35-7.45) 03/02/18 19:55 ABG Total CO2 28.7 mmol/L (22-28) H 03/02/18 19:55 ABG O2 Saturation 92.3 % (95-98) L 03/02/18 19:55 ABG Base Excess 2.0 mmol/L (-2.0-3.0) 03/02/18 19:55 ABG Hemoglobin 14.5 g/dL (11.7-17.4) 03/02/18 19:55 ABG Carboxyhemoglobin 2.8 % (0.5-1.5) H 03/02/18 19:55 POC ABG HHb (Measured) 7.4 % (0.0-5.0) H 03/02/18 19:55 ABG Methemoglobin 1.2 % (0.0-3.0) 03/02/18 19:55 [place] Test Po 03/02/18 19:55 VBG pH 7.29 (7.32-7.43) L 03/02/18 12:35 VBG pCO2 52 mmHg (40-60) 03/02/18 12:35 VBG HCO3 21.7 mmol/L 03/02/18 12:35 VBG Total CO2 26.6 mmol/L (22-28) 03/02/18 12:35 VBG O2 Sat (Calc) 51.2 % (40-65) 03/02/18 12:35 VBG Base Excess -2.3 mmol/L (0.0-2.0) L 03/02/18 12:35 VBG Potassium 5.7 mmol/L (3.6-5.2) H 03/02/18 12:35 A-a O2 Difference 41.0 mm/Hg 03/02/18 19:55 Respiratory Index 0.8 03/02/18 19:55 Hgb O2 Saturation 88.6 % (95.0-98.0) L 03/02/18 19:55 Sodium 129.0 mmol/l (132-148) L 03/02/18 12:35 Chloride 97.0 mmol/L (98-107) L 03/02/18 12:35 Glucose 253 mg/dl (75-110) H 03/02/18 12:35 Lactate 2.3 mmol/L (0.7-2.1) H 03/02/18 12:35 FiO2 21.0 % 03/02/18 19:55 Sodium 141 mmol/L (132-148) 03/04/18 07:04 Potassium 4.1 mmol/L (3.6-5.2) 03/04/18 07:04 Chloride 104 mmol/L (98-107) 03/04/18 07:04 Carbon Dioxide 27 mmol/L (22-30) 03/04/18 07:04 Anion Gap 14 (10-20) 03/04/18 07:04 BUN 17 mg/dL (9-20) 03/04/18 07:04 Creatinine 0.8 mg/dL (0.8-1.5) 03/04/18 07:04 Est GFR ( Amer) > 60 03/04/18 07:04 Est GFR (Non-Af Amer) > 60 03/04/18 07:04 POC Glucose (mg/dL) 122 mg/dL (65-110) H 03/04/18 16:21 Random Glucose 144 mg/dL (75-110) H 03/04/18 07:04 Hemoglobin A1c 9.1 % (4.2-6.5) H 03/02/18 15:42 Lactic Acid 1.3 mmol/L (0.7-2.1) 03/03/18 08:33 Calcium 8.6 mg/dl (8.6-10.4) 03/04/18 07:04 Phosphorus 2.6 mg/dL (2.5-4.5) 03/04/18 07:04 Magnesium 1.5 mg/dL (1.6-2.3) L 03/04/18 07:04 Total Bilirubin 1.1 mg/dL (0.2-1.3) 03/04/18 07:04 AST 29 U/L (17-59) 03/04/18 07:04 ALT 29 U/L (21-72) 03/04/18 07:04 Alkaline Phosphatase 46 U/L (38-126) 03/04/18 07:04 Troponin I 0.0170 ng/mL (0.00-0.120) 03/02/18 12:04 NT-Pro-B Natriuret Pep 84.7 pg/mL (0-900) 03/02/18 12:04 Total Protein 6.3 g/dL (6.3-8.3) 03/04/18 07:04 Albumin 3.3 g/dL (3.5-5.0) L 03/04/18 07:04 Globulin 3.0 gm/dL (2.2-3.9) 03/04/18 07:04 Albumin/Globulin Ratio 1.1 (1.0-2.1) 03/04/18 07:04 Triglycerides 120 mg/dL (0-149) 03/02/18 12:04 Cholesterol 117 mg/dL (0-199) 03/02/18 12:04 LDL Cholesterol Direct 70 mg/dL (0-129) 03/02/18 12:04 HDL Cholesterol 29 mg/dL (30-70) L 03/02/18 12:04 Lipase 49 U/L (23-300) 03/02/18 12:04 Venous Blood Potassium 5.7 mmol/L (3.6-5.2) H 03/02/18 12:35 Influenza Typ A,B (EIA) Negative for flu a/b (NEGATIVE) 03/02/18 Unknown Blood Type O POSITIVE 03/02/18 12:04 Antibody Screen Negative 03/02/18 12:04 Attending/Attestation - Attestation I have personally seen and examined this patient.: Yes I have fully participated in the care of the patient.: Yes I have reviewed all pertinent clinical information, including history, physical exam and plan: Yes Notes (Text): 03/04/18 18:30 Medical attending: Patient was seen and examined by me. Agree with the above note by the resident The patient already had the NGT removed by the time we saw him. The patient reported have BMs overnight He reported feeling well and wanted to try a diet. He tolerated breakfast and advanced diet for lunch - he did ok with this as well. We cautioned patient that he needs to advance diet slowly. Also stressed the importance to him of follow up, especially colonscopy in the future. thank you Andrew Dimas
[2018-03-04] MEDS ORDERED: POLYETHYLENE GLYCOL 3350 17 GM/Dose PACKET PO SCH (18:00)
== END 2018-03-04 19:00 | disposition home or self-care (01) | DRG 180 ==
LOC: C.ER 11:34 → C.9E 14:58 → C.3T 18:05 → OBSVTOIN 19:05 → C.6T 21:15
PROVIDERS: ADMIT Hospitalist; ATTEND Hospitalist
PROC: 0D9670Z Drainage of Stomach with Drainage Device, Via Natural or Artificial Opening (ICD-10-PCS; principal; 2018-03-02)
DX: K56.609 Unspecified intestinal obstruction, unspecified as to partial versus complete obstruction (principal); E87.5 Hyperkalemia; E66.9 Obesity, unspecified; I95.9 Hypotension, unspecified; E11.9 Type 2 diabetes mellitus without complications; F17.210 Nicotine dependence, cigarettes, uncomplicated; I10 Essential (primary) hypertension